=== PATIENT | female | born 1980 | race Caucasian/White ===

== ENCOUNTER 2016-07-14 06:34 | Emergency (ER) | payer OTHER, MEDICAID ==
[2016-07-14 06:41] VITALS: BP 103/69; RESP 18; TEMP 98.2
--- NOTE | 2016-07-14 07:20 | EDPHY ---
H & P Time Seen by Provider: 07/14/16 06:58 HPI/ROS: CHIEF COMPLAINT: fall HISTORY OF PRESENT ILLNESS: Patient is a 35-year-old female who presents to the emergency department after falling on black ice. Patient states she fell onto her left hip. She now has severe left hip pain. It is worse with movement. She has difficulty walking. She also complains of right rib pain. She denies shortness of breath. Rib pain hurts worse with movement. No neck or back pain. No headache. She did not lose consciousness. No nausea or vomiting. No numbness or tingling REVIEW OF SYSTEMS: My complete review of systems is negative except as mentioned in the HPI. Past Medical/Surgical History: Includes asthma and hypertension Social history: Homeless Smoking Status: Heavy smoker Physical Exam: Vitals noted GENERAL: Mild acute distress, alert. HEAD: No evidence of trauma. EYES: PERRLA, EOMI, normal to inspection. ENT: Airway intact, no dental or oral injury, no malocclusion, normal external examination. NECK: The trachea is midline. There is no crepitus. The C-spine is nontender. NEXUS criteria is negative (no midline tenderness, no distracting injury, no altered mental status, no recent alcohol use, no focal neurologic deficit). RESPIRATORY: Clear to auscultation bilaterally, no rales, rhonchi or wheezing. There is no crepitus or palpable rib fractures. CVS: Regular rate and rhythm, no rubs, murmurs, or gallops. Chest wall: Mild right lateral tenderness palpation. No crepitus or deformity. ABDOMEN: Soft, nontender, nondistended, normal bowel sounds, no bruising or abrasions. Benign Pelvis: Stable. Mild left hip tenderness to palpation. No deformity. Pain with movement. BACK: Normal to inspection, no spinal tenderness, no spinal step off, no notable bruising or abrasions. SKIN: Normal color, warm, dry. No pallor or diaphoresis. EXTREMITIES: Right upper extremity: Atraumatic. No visible signs of trauma. No tenderness palpation. Neurovascular intact distally. Left upper extremity: Atraumatic. No visible signs of trauma. No tenderness palpation. Neurovascular intact distally. Right lower extremity: Atraumatic. No visible signs of trauma. No tenderness palpation. Neurovascular intact distally. Left lower extremity: No visible trauma. Mild left hip tenderness to palpation. No deformity. Discomfort with movement of the left hip. Neurovascularly intact distally in all extremities. Pelvis stable NEURO/PSYCH: Alert and oriented, GCS 15, normal mood and affect, normal motor sensory exam. Constitutional: Initial Vital Signs Temperature (C) 36.8 C 07/14/16 06:38 Heart Rate 89 07/14/16 06:38 Respiratory Rate 18 07/14/16 06:38 Blood Pressure 103/69 07/14/16 06:38 O2 Sat (%) 96 07/14/16 06:38 O2 Delivery Mode Room Air Allergies/Adverse Reactions: Penicillins Allergy (Unknown, Verified 07/14/16 06:41) Fish Containing Products [fish] Allergy (Verified 07/14/16 06:42) Home Medications: Medication Instructions Recorded Ativan 01/05/16 Depakote 01/05/16 Zyprexa 01/05/16 traZODone 04/26/16 Medical Decision Making ED Course/Re-evaluation: In the emergency department I discussed possible etiologies with patient. She consented to x-ray imaging of her left hip and chest. She was given Percocet orally. Rechecked the patient while here. She was stable with no new complaints. Chest x-ray: Please refer the dictated report. There are findings of bronchitis. No acute fracture, pneumothorax or hemothorax. Left hip x-ray: I reviewed the left hip x-ray with Dr. newman. There appears to be old avulsion. No acute fracture or dislocation. I discussed the results with the patient. Patient was offered crutches. She states that she would prefer a walker. I spoke with case management to help arrange a walker for the patient. Patient was given a single crutches given a cab voucher to get to her prescription for a walker. She agreed with this plan. She was able to ambulate in the emergency department. Differential Diagnosis: My differential includes but is not limited to hip contusion, hip fracture, hip dislocation, neurovascular injury, rib contusion, rib fracture, pneumothorax, hemothorax - Data Points Medications Given: Discontinued Medications Oxycodone/Acetaminophen (Percocet 5/325) 2 tab PO EDNOW ONE Stop: 07/14/16 07:27 Last Admin: 07/14/16 07:48 Dose: 2 tab Departure - Departure Disposition: Home, Routine, Self-Care Clinical Impression: Schizophrenia Contusion of left hip Qualifiers: Encounter type: initial encounter Qualifier Code: (S70.02XA) Contusion of left hip, initial encounter Contusion of rib on right side Qualifiers: Encounter type: initial encounter Qualifier Code: (S20.211A) Contusion of right front wall of thorax, initial encounter Condition: Good Instructions: Hip Contusion (ED), Rib Contusion (ED) Referrals: [facility] [Outside] - As per Instructions
[2016-07-14] MEDS ORDERED: OXYCODONE/APAP 5/325 TAB PO ONE (07:26)
--- NOTE | 2016-07-14 08:01 | DX ---
AP and Lateral Chest History: Fall on ice, left hip pain, cough. Comparison: Two-view chest April 26, 2016. Findings: There is mild peribronchial thickening without focal consolidation. There is no pneumothora x or pleural effusion. The heart and pulmonary vasculature are normal. The bones are stable. Impression: Mild peribronchial thickening suggesting airways disease/bronchitis.
[2016-07-14 09:58] VITALS: PULSE 78; O2SAT 93
--- NOTE | 2016-07-14 10:16 | DX ---
Left Hip Two Views INDICATION: Trauma. FINDINGS: No radiographic evidence for fracture or dislocation. Two linear radiopaque materials are o wil the lateral proximal thigh, presumed to be extrinsic. No significant degenerative change. SI join ts are symmetric. IMPRESSION: Nothing acute radiographically on the left hip. Fragment lateral to the greater trochante r is thought to be old avulsion injury or tendinous calcification.
== END 2016-07-14 09:58 | disposition home or self-care (01) ==
DX: S70.02XA Contusion of left hip, initial encounter (principal); S20.211A Contusion of right front wall of thorax, initial encounter; F20.9 Schizophrenia, unspecified; J45.909 Unspecified asthma, uncomplicated; I10 Essential (primary) hypertension; F17.200 Nicotine dependence, unspecified, uncomplicated; W00.0XXA Fall on same level due to ice and snow, initial encounter

== ENCOUNTER 2016-07-23 13:51 | Emergency (ER) | payer OTHER, MEDICAID ==
[2016-07-23 14:17] VITALS: BP 123/69; PULSE 85; RESP 16; TEMP 98.4; O2SAT 95
--- NOTE | 2016-07-23 14:50 | EDPHY ---
H & P Stated Complaint: PD found pt trespassing. pt c/o fell yest. PD called EMS. BIBA for pain. Source: Patient, Family Exam Limitations: No limitations - Personal History LMP (Females 10-55): Unknown Current Tetanus/Diphtheria Vaccine: Unsure Current Tetanus Diphtheria and Acellular Pertussis (TDAP): Unsure - Medical/Surgical History Hx Asthma: Yes Hx Chronic Respiratory Disease: No Hx Diabetes: No Hx Cardiac Disease: No Hx Renal Disease: No Hx Cirrhosis: No Hx Alcoholism: No Hx HIV/AIDS: No Hx Splenectomy or Spleen Trauma: No Other PMH: c section x4; wisdom teeth extraction; depression; SI, crack cocaine & meth abuse, psych, asthma, DM, schizophrenia - Social History Smoking Status: Heavy smoker HPI/ROS: CHIEF COMPLAINT: Headache, back pain, fall HISTORY OF PRESENT ILLNESS: patient reports falling last night of her wheelchair. She says she was running across the street when she slipped, falling forward. She struck her head and back. No loss of consciousness. No vomiting. Since then she has had pain in the back of the head, the sides of her neck, on her low back into the pelvis. She has no numbness or tingling anywhere. She has no incontinence. She always has some paresthesia of the legs which is at baseline. She has no weakness of the legs. She says she is in so much pain she cannot walk. No vomiting today. No chest or thoracic back injury. No abdominal pain. No dysuria. Patient says she is in severe pain and was unable to walk. The police, who were attempting to escort her off of property today said that she was actually walking vigorously Away from them. They were attempting to escorted off the property, when she noted that she was in pain from a fall last night and asked to be taken to the emergency department. No other associated complaints or modifying factors. REVIEW OF SYSTEMS: Ten systems reviewed and are negative unless otherwise noted in the HPI EXAMINATION General Appearance: Alert, no distress , unkempt Head: normocephalic, atraumatic. No Hernandez sign. No raccoon eyes. No hematoma , deformity or outward signs of trauma Eyes: Pupils equal and round, no conjunctival pallor or injection. EOMs intact. ENT, Mouth: Mucous membranes moist . Poor dentition. No lesions Neck: Normal inspection, supple. Tenderness to palpation about the lateral aspects of the cervical spine and trapezius muscles bilaterally. No step-offs or deformity. Respiratory: Scattered rhonchi. No wheezing, crackles or consolidation Cardiovascular: tachycardic at 102 beats per minute. Normal rhythm. No murmur. Pulses intact distally with symmetric DP, PT and radial pulses at 2+. Gastrointestinal: Obese. Soft and nontender. Back: Tenderness to palpation of the lumbar spine. No crepitus, step-off or deformity. Tenderness to palpation of the cervical spine at the lateral aspect. No midline tenderness of the cervical spine. No tenderness of the thoracic spine. There is soft tissue tenderness in the entire back. No bruising, hematomas or outward signs of trauma of the back. Neurological: A&O, nonfocal, normal gait Skin: Warm and dry. Unkempt. Grossly intact. Extremities: Nontender, no pedal edema . Range of motion intact in all 4 limbs. Psychiatric: Mood and affect normal DIFFERENTIAL DIAGNOSES: Including but not limited to Contusion, fracture, hematoma, sprain, strain, closed head injury MDM: mechanical fall with no outward signs of trauma at any site of her pain. She has no nausea vomiting, without any outward sign of trauma I have not ordered a CT scan of the head. We will obtain a CT scan of the cervical spine, plain film lumbar spine, plain film of the pelvis. 4:[address] scan of the cervical spine, chest x-ray, lumbar x-ray, pelvic x-ray are all within normal limits. no evidence of acute cord compression or cauda equina by history, examination or x-ray. She has been ambulatory in the hallway several times asking for water and food. Discharged home in stable condition with instructions to follow up with [facility] for further care. Patient is comfortable with this plan SUPERVISION: Patient was evaluated in conjunction with the supervising physician. Please see their note for details. (Laurent Hoffman) Constitutional: Initial Vital Signs Temperature (C) 98.4 F 07/23/16 14:13 Heart Rate 85 07/23/16 14:13 Respiratory Rate 16 07/23/16 14:13 Blood Pressure 123/69 H 07/23/16 14:13 O2 Sat (%) 95 07/23/16 14:13 O2 Delivery Mode Room Air Allergies/Adverse Reactions: Penicillins Allergy (Unknown, Verified 07/23/16 14:13) Fish Containing Products [fish] Allergy (Verified 07/23/16 14:13) Home Medications: Medication Instructions Recorded Ativan 01/05/16 Depakote 01/05/16 Zyprexa 01/05/16 traZODone 04/26/16 Ibuprofen 600 mg PO Q6-8PRN PRN #20 tablet 07/23/16 Medical Decision Making ED Course/Re-evaluation: CT cspine negative per Cezar at 1546. (Chase Garcia) Departure - Departure Disposition: Home, Routine, Self-Care Clinical Impression: Closed head injury Qualifiers: Encounter type: initial encounter Qualifier Code: (S09.90XA) Unspecified injury of head, initial encounter Fall Qualifiers: Encounter type: initial encounter Qualifier Code: (W19.XXXA) Unspecified fall, initial encounter Acute low back pain Qualifiers: Back pain laterality: midline Sciatica presence: without sciatica Qualifier Code: (M54.5) Low back pain Condition: Good Instructions: Fall Prevention for Older Adults (ED), Head Injury (ED), Acute Low Back Pain (ED) Referrals: Betsy Durbin MD [Medical Doctor] - As per Instructions NONE *PRIMARY CARE P,. [Primary Care Provider] - As per Instructions [facility] [Outside] - As per Instructions Prescriptions: Ibuprofen 600 mg PO Q6-8PRN PRN #20 tablet PRN Reason: Pain, Mild
--- NOTE | 2016-07-23 15:47 | CT ---
CT Cervical Spine 15:27 p.m. Indication: Trauma. Neck pain. Comparison: None Technique: 1.25 mm thick axial collimated slices were obtained from the occiput through superior endp late of T2. The data was reconstructed in the sagittal and coronal plane. Both soft tissue and bone w indows were reviewed. Dose reduction techniques were utilized. Findings: The occiput through T2 is anatomically aligned. No acute fracture or soft tissue swelling. No motion artifact. The lung apices are clear. Mild mucosal thickening is present in the sphenoid air cells. Impression: 1. No acute fracture or soft tissue swelling. 2. If the patient has persistent pain or neurologic deficits, consider cervical spine MRI. Comment: Case was discussed with Dr. Chase Garcia at 15:45 July 23, 2016.
--- NOTE | 2016-07-23 15:56 | DX ---
PA and Lateral Chest 14:59 PM Indication: Trauma. Fell from wheelchair. Comparison: 2 view chest dated July 14, 2016 Findings: The lungs are well aerated and clear. Mild diffuse peribronchial thickening is unchanged. N o pneumothorax or discernible fracture. Minimal multilevel degenerative disk disease unchanged. Impression: Negative. No acute change.
--- NOTE | 2016-07-23 16:24 | DX ---
Lumbar Spine, Two Views 15:04 PM Hours Indication: Pain. Trauma. Comparison: 2 view lumbar spine April 30, 2016 Technique: Upright AP and lateral views. Findings: Five nonrib-bearing lumbar vertebral bodies are anatomically aligned. No acute compression fracture or pars defect. Minimal disk height loss at T12-L1, L1-L2, L2-L3, and L5-S1 is unchanged. Impression: No acute fracture or pars defect.
--- NOTE | 2016-07-23 16:37 | DX ---
Pelvis single view Indication: Trauma. Fell from wheelchair. Comparison: AP pelvis dated April 30, 2016 Findings: Bones are anatomically aligned. No acute fracture. Minimal dystrophic calcification along t he left greater trochanter is unchanged. Impression: Negative. No acute fracture.
== END 2016-07-23 17:05 | disposition home or self-care (01) ==
LOC: EDUNIT#
DX: S09.90XA Unspecified injury of head, initial encounter (principal); S39.92XA Unspecified injury of lower back, initial encounter; J45.909 Unspecified asthma, uncomplicated; F17.200 Nicotine dependence, unspecified, uncomplicated; V00.818A Other accident with wheelchair (powered), initial encounter; Y92.410 Unspecified street and highway as the place of occurrence of the external cause; Y93.89 Activity, other specified

== ENCOUNTER 2016-07-25 23:13 | Emergency (ER) | payer OTHER, MEDICAID ==
--- NOTE | 2016-07-25 23:25 | EDPHY ---
HPI/HX/ROS/PE/MDM Narrative: Chief complaint: Shortness of breath and dehydration HPI: 35-year-old homeless woman presenting complaining of shortness of breath, dehydration and being hungry. Patient states that she has been coughing up yellow phlegm and feeling shortness of breath. She called 911 but felt that her mouth was so dry she could hardly speak. She has not been drinking any fluids because she states she does not have a container to drink out of. Per EMS she has been picking at spent cigarettes off the sidewalk and smoking them. States she is also not been eating. Denies any fevers or chills. His cough productive of yellow sputum. Has not been taking her medications because she does not have anything to eat. Per EMS she was 97% on room air. They did not appreciate any wheezes. They did not at any treatments. ROS: 10 point Review of Systems is negative except as noted in the HPI. Physical exam: Gen: Awake, Alert, No Distress, oxygen saturation 97% on room air HEENT: Nose: no rhinorrhea Eyes: PERRLA, EOMI Mouth: Dry oral mucosa Neck: Supple, no JVD Chest: nontender, lungs clear to auscultation, she has good air movement, there are no audible wheezes, there are no rales or rhonchi. Heart: S1, S2 normal, no murmur Abd: Soft, non-tender, no guarding Back: no CVA tenderness, no midline tenderness Ext: no edema, non-tender Skin: no rash Neuro: CN II-XII intact, Sensation grossly intact, Strength 5/5 in bilateral upper and lower extremities ED Course: 35-year-old homeless woman presenting complaining of shortness of breath, yellow sputum, dehydration hungry. She is normal oxygenation. She has excellent air movement with no wheeze rales or rhonchi. She does have dry mucous membranes. Will give her oral hydration and reassess. Patient is improved after oral fluids and food. She has no respiratory distress. Lungs are clear. She is afebrile. Oxygen saturation is excellent. Will discharge with outpatient follow-up as needed. General Time Seen by Provider: 07/25/16 23:18 Initial Vital Signs: Initial Vital Signs Temperature (C) 36.7 C 07/25/16 23:23 Heart Rate 86 01/30/17 23:23 Respiratory Rate 20 07/25/16 23:23 Blood Pressure 107/74 07/25/16 23:23 O2 Sat (%) 96 07/25/16 23:23 O2 Delivery Mode Room Air Allergies/Adverse Reactions: Penicillins Allergy (Unknown, Verified 07/23/16 14:13) Fish Containing Products [fish] Allergy (Verified 07/23/16 14:13) Home Medications: Medication Instructions Recorded Ativan 01/05/16 Depakote 01/05/16 Zyprexa 01/05/16 traZODone 04/26/16 Ibuprofen 600 mg PO Q6-8PRN PRN #20 tablet 07/23/16 Departure - Departure Disposition: Home, Routine, Self-Care Clinical Impression: Viral upper respiratory infection, Dehydration Condition: Good Instructions: Viral Syndrome (ED) Additional Instructions: Make sure to drink plenty of fluids. Follow up with the [facility] in 2-3 days if symptoms are not improving. Return to the ED for increasing fevers, chills, shortness of breath, pain, or any other concerns. Referrals: NONE *PRIMARY CARE P,. [Primary Care Provider] - As per Instructions [facility] [Outside] - As per Instructions
[2016-07-25 23:26] VITALS: TEMP 98.1
[2016-07-26 01:27] VITALS: BP 110/71; PULSE 81; RESP 18; O2SAT 97
== END 2016-07-26 01:31 | disposition home or self-care (01) ==
LOC: EDUNIT#
DX: E86.0 Dehydration (principal); J06.9 Acute upper respiratory infection, unspecified

== ENCOUNTER 2016-07-31 18:24 | Emergency (ER) | payer OTHER, MEDICAID ==
[2016-07-31 18:34] VITALS: BP 100/76; PULSE 100; RESP 24; TEMP 99.7; O2SAT 92
--- NOTE | 2016-07-31 18:42 | EDPHY ---
HPI/HX/ROS/PE/MDM Narrative: CHIEF COMPLAINT: Multiple complaints HPI: The patient is a 35 y/o female, with 16 visits in the last year, [facility] complaining aggressively of "pain everywhere" and inability to walk on the ice. When attempting to clarify what her complaint is she says, "owwie;" "I can't make it down the street;" "and my ear and my tongue and my hip and my ribs." When I ask what she would like in the ED tonight , she says, "I came in an ambulance bro!" and "people who accuse me of drug use need to pray about it." I offered ibuprofen for pain, which she refused. After yelling at staff more, she stood, dressed herself, and walked out of her room yelling for a wheelchair to leave. REVIEW OF SYSTEMS: Aside from elements discussed in the HPI, a comprehensive 10-point review of systems was reviewed and is negative. PMH: Cellulitis, chronic pain SOCIAL HISTORY: Homeless, meth use Prior medical records reviewed including ED visit 07/25/16 for similar. PHYSICAL EXAM: General:Patient is alert, obese, yelling aggressively at staff. Obese. ENT:Eyes are normal to inspection. ENT inspection normal. Neck: Normal inspection. Full range of motion. Respiratory:No respiratory distress. Breath sounds normal bilaterally. Cardiovascular: Regular rate and rhythm. Strong peripheral pulses. Normal cap refill. Abdomen:The abdomen is nontender to palpation. There are no peritoneal signs. There are normal bowel sounds. Back: Normal to inspection. No tenderness to palpation. Skin: Normal color. Chronic excoriation underneath bilateral breasts. Warm and dry. Extremities: Normal appearance. Full range of motion. Neuro: Normal motor function. Normal sensory function. MDM: This patient presents with this extremely large and unusual number of complaints , none of which are consistent with an emergency medical condition. Her primary concern appears to be admission the hospital. I see no evidence of acute coronary syndrome, pneumonia, sepsis or psychiatric emergency. Clearly the patient has some psychiatric issues, but does not appear to warrant an M1 hold. I do not think further workup is currently indicated. General Time Seen by Provider: 07/31/16 18:32 Initial Vital Signs: Initial Vital Signs Temperature (C) 37.6 C 07/31/16 18:32 Heart Rate 100 07/31/16 18:32 Respiratory Rate 24 H 07/31/16 18:32 Blood Pressure 100/76 07/31/16 18:32 O2 Sat (%) 92 07/31/16 18:32 O2 Delivery Mode Room Air Allergies/Adverse Reactions: Penicillins Allergy (Unknown, Verified 07/23/16 14:13) Fish Containing Products [fish] Allergy (Verified 07/23/16 14:13) Home Medications: Medication Instructions Recorded Ativan 01/05/16 Depakote 01/05/16 Zyprexa 01/05/16 traZODone 04/26/16 Ibuprofen 600 mg PO Q6-8PRN PRN #20 tablet 07/23/16 Departure - Departure Disposition: Home, Routine, Self-Care Clinical Impression: Whole body pain Condition: Good Instructions: Chronic Pain (ED) Additional Instructions: Follow up at the [facility] this week for symptoms unimproved over the next few days. Referrals: Patient,NotPresent [Primary Care Provider] - As per Instructions [facility] [Outside] - As per Instructions Report Scribed for: Herber Hope Report Scribed by: Miriam Frost Date of Report: 07/31/16 Time of Report: 18:44 Physician Review and Approval Statement: Portions of this note were transcribed by an ED scribe. I personally performed the history, physical exam, and medical decision making; and confirm the accuracy of the information in the transcribed note.
== END 2016-07-31 18:53 | disposition home or self-care (01) ==
LOC: EDBD → EDUNIT#
DX: R52 Pain, unspecified (principal)

== ENCOUNTER 2016-08-31 06:27 | Emergency (ER) | payer OTHER, MEDICAID ==
[2016-08-31 06:38] VITALS: BP 80/64; PULSE 82; RESP 20; TEMP 98.1; O2SAT 98
[2016-08-31] MEDS ORDERED: IBUPROFEN 600 MG TAB PO ONE ×2 (07:31→07:41)
--- NOTE | 2016-08-31 07:32 | EDPHY ---
H & P Time Seen by Provider: 08/31/16 07:11 HPI/ROS: CHIEF COMPLAINT: right leg pain HISTORY OF PRESENT ILLNESS: 35-year-old female with schizophrenia presents for right leg pain. She states that she has broken body parts and hurts all over. Her right leg is hurting the most. No recent injury. She requests a shot to alleviate the pain. However, mainly she states that she is cold and asks me if I can keep her warm. ROS: No numbness, weakness, bleeding, syncopal episode, other injury. Past Medical/Surgical History: Schizophrenia Social History: Homeless Smoking Status: Heavy smoker Physical Exam: General Appearance: Sleeping as I enter the room, easily aroused, disheveled Eyes: Pupils equal and round ENT, Mouth: Mucous membranes moist Neck: Normal inspection Respiratory: Lungs are clear to auscultation Cardiovascular: Regular rate and rhythm Neurological: alert, nonfocal exam Skin: Warm and dry Extremities: right lower extremity-normal inspection, no tenderness to palpation, range of motion without apparent pain Psychiatric: odd affect Constitutional: Initial Vital Signs Temperature (C) 36.7 C 08/31/16 06:37 Heart Rate 82 08/31/16 06:37 Respiratory Rate 20 08/31/16 06:37 Blood Pressure 80/64 L 08/31/16 06:37 O2 Sat (%) 98 08/31/16 06:37 O2 Delivery Mode Room Air Allergies/Adverse Reactions: Penicillins Allergy (Unknown, Verified 07/23/16 14:13) Fish Containing Products [fish] Allergy (Verified 07/23/16 14:13) Home Medications: Medication Instructions Recorded Ativan 01/05/16 Ibuprofen 600 mg PO Q6-8PRN PRN #20 tablet 07/23/16 Risperdal 08/31/16 Medical Decision Making ED Course/Re-evaluation: This patient presents right leg pain, without signs of injury, and with a normal physical exam. Ibuprofen 600 mg orally given. Able to walk with a steady gait. - Data Points Medications Given: Discontinued Medications Ibuprofen (Motrin) 600 mg PO EDNOW ONE Stop: 08/31/16 07:32 Last Admin: 08/31/16 07:33 Dose: 600 mg Departure - Departure Disposition: Home, Routine, Self-Care Clinical Impression: Leg pain, right Schizophrenia Qualifiers: Schizophrenia type: paranoid schizophrenia Qualified Code(s): F20.0 - Paranoid schizophrenia Condition: Good Instructions: Leg Pain (ED) Additional Instructions: Ibuprofen 600 mg 3 times daily while the pain persists. Referrals: ANOOP BARNES [Primary Care Provider] - As per Instructions
== END 2016-08-31 08:01 | disposition home or self-care (01) ==
LOC: EDUNIT#
DX: M79.604 Pain in right leg (principal); F20.0 Paranoid schizophrenia; F17.200 Nicotine dependence, unspecified, uncomplicated

== ENCOUNTER 2016-12-03 00:51 | Emergency (ER) | payer OTHER, MEDICAID ==
[2016-12-03 00:59] VITALS: RESP 18
--- NOTE | 2016-12-03 03:24 | EDPHY ---
H & P Stated Complaint: asthma attack, cough x3 days Time Seen by Provider: 12/03/16 02:22 HPI/ROS: HPI The patient presents with cough and shortness of breath for the last 3 days. This is been intermittent, mild in severity. Her cough has been dry. She is brought in by ambulance and has received a DuoNeb treatment with improvement in her symptoms.. REVIEW OF SYSTEMS Constitutional: No fever, no chills. Eyes: No discharge. ENT: No sore throat. Cardiovascular: No chest pain, no palpitations. Respiratory: See HPI Gastrointestinal: No abdominal pain, no vomiting. Genitourinary: No hematuria. Musculoskeletal: No back pain. Skin: No rashes. Neurological: No headache. PMHx: Asthma, schizophrenia, drug abuse Soc Hx: Homeless PHYSICAL General Appearance: Alert, no distress Eyes: Pupils equal and round no pallor or injection ENT, Mouth: Mucous membranes moist Respiratory: There are no retractions, lungs are clear to auscultation Cardiovascular: Regular rate and rhythm Gastrointestinal: Abdomen is soft and non-tender, no masses, bowel sounds normal Neurological: A&O, moves all extremities Skin: Warm and dry, no rashes Musculoskeletal: Neck is supple non tender Extremities: symmetrical, full range of motion Psychiatric: Patient is oriented X 3, there is no agitation Source: Patient, EMS - Personal History Current Tetanus/Diphtheria Vaccine: Yes Current Tetanus Diphtheria and Acellular Pertussis (TDAP): Yes Tetanus Vaccine Date: 2015 - Medical/Surgical History Hx Asthma: Yes Hx Chronic Respiratory Disease: Yes Hx Diabetes: Yes Hx Cardiac Disease: No Hx Renal Disease: No Hx Cirrhosis: No Hx Alcoholism: No Hx HIV/AIDS: No Hx Splenectomy or Spleen Trauma: No Other PMH: c section x4; wisdom teeth extraction; depression; SI, crack cocaine & meth abuse, psych, asthma, DM, schizophrenia - Social History Smoking Status: Heavy smoker Constitutional: Initial Vital Signs Temperature (C) 36.9 C 12/03/16 00:57 Heart Rate 88 12/03/16 00:57 Respiratory Rate 18 12/03/16 00:57 Blood Pressure 121/71 H 12/03/16 00:57 O2 Sat (%) 93 12/03/16 00:57 O2 Delivery Mode Room Air O2 (L/minute) 2 Allergies/Adverse Reactions: Penicillins Allergy (Unknown, Verified 07/23/16 14:13) Fish Containing Products [fish] Allergy (Verified 07/23/16 14:13) Home Medications: Medication Instructions Recorded Ativan 01/05/16 Ibuprofen 600 mg PO Q6-8PRN PRN #20 tablet 07/23/16 Risperdal 08/31/16 Medical Decision Making Differential Diagnosis: This is a 36-year-old homeless female who presents brought in by ambulance for cough and shortness of breath for the last 3 days, symptoms now resolved since receiving a DuoNeb EN route. She is not hypoxic, she is breathing comfortably she is well-appearing. Her lungs sound completely clear to me. Differential diagnosis includes asthma exacerbation, viral URI, less likely pneumonia. The patient was monitored in the emergency room with no ongoing symptoms. She was discharged home. Departure - Departure Disposition: Home, Routine, Self-Care Clinical Impression: Shortness of breath Condition: Good Instructions: Dyspnea (ED) Referrals: [facility] [Outside] - As per Instructions
[2016-12-03 03:29] VITALS: BP 116/72; PULSE 80; TEMP 98.6; O2SAT 93
== END 2016-12-03 03:33 | disposition home or self-care (01) ==
LOC: EDUNIT#
DX: R06.02 Shortness of breath (principal); J45.909 Unspecified asthma, uncomplicated; F17.200 Nicotine dependence, unspecified, uncomplicated; E11.9 Type 2 diabetes mellitus without complications

== ENCOUNTER 2017-07-23 21:02 | Emergency (ER) | payer OTHER, MEDICAID ==
--- NOTE | 2017-07-23 21:05 | EDPHY ---
H & P Smoking Status: Heavy smoker Time Seen by Provider: 07/23/17 21:05 HPI/ROS: CHIEF COMPLAINT: Seeing snakes HISTORY OF PRESENT ILLNESS: Patient has schizoaffective disorder or schizophrenia (unclear from past records and hold) and also has history of substance abuse. She was using methamphetamine this weekend and today and is now hallucinating. Was placed on a mental health hold at the walk-in clinic and transported here. Patient denies homicidal or suicidal ideation. Says she is seeing snakes. REVIEW OF SYSTEMS: Eye: no change in vision ENT: no sore throat Cardiac: no chest pain or syncope Pulmonary: no cough or SOB Abdomen: no vomiting, diarrhea, abdominal pain Musculoskeletal: Chronic back pain unchanged Skin: no rash Neuro: no headache Constitutional: no fever : no urinary symptoms A comprehensive 10 point review of systems is otherwise negative aside from elements mentioned in the history of present illness. PAST MEDICAL HISTORY: Includes asthma, diabetes, schizoaffective disorder or schizophrenia Social history: Patient admits to methamphetamine use over the weekend and today, "100 dollars worth ", heavy smoker General Appearance: Alert and conversant, cooperative. Eyes: No scleral icterus. ENT, Mouth: Normal mucous membranes. Respiratory: Normal respiratory effort, breath sounds equal, lungs are clear to auscultation. Cardiovascular: Regular rate and rhythm. Gastrointestinal: Abdomen is soft and non tender. Neurological: Alert, face symmetric, normal motor and sensory in extremities. Skin: Warm and dry, no rashes. Musculoskeletal: Slight peripheral edema but no calf tenderness Psychiatric: Patient is mildly agitated and has pressured speech. Denies suicidal or homicidal ideation. Says she was "seeing rattlesnake "that is why she ended up the ambulance. Emergency Department course/MDM: Patient arrives on a mental health hold by the [facility] walk-in clinic. Amphetamine positive toxicology screen. Initial heart rate 120's likely due to her agitation, down to 90-100 after calmer. Signed out to Dr. Desir at 2200 with psychiatric evaluation pending. (Chase Garcia) Constitutional: Initial Vital Signs Temperature (C) 37.3 C 07/23/17 21:30 Heart Rate 122 H 07/23/17 21:30 Respiratory Rate 18 07/23/17 21:30 Blood Pressure 125/103 H 07/23/17 21:30 O2 Sat (%) 94 07/23/17 21:30 O2 Delivery Mode Room Air O2 (L/minute) 97 Allergies/Adverse Reactions: Penicillins Allergy (Unknown, Verified 07/29/17 02:16) Fish Containing Products [fish] Allergy (Verified 07/29/17 02:16) Home Medications: Medication Instructions Recorded Risperdal 08/31/16 Depakote 07/23/17 Medical Decision Making Differential Diagnosis: Differential for hallucinations considered including but not limited to metabolic, drug , alcohol, schizoaffective, (Chase Garcia) Other Provider: 2300 care assumed by me from Dr. Garcia pending mental health evaluation. Patient increasingly agitated overnight has required Ativan and Zyprexa on 2 occasions. Has never become aggressive. Awaiting mental health evaluation. 0700 patient signed out to Dr. Bell pending mental health evaluation. ( Maximo Desir) I assumed care of this patient from Dr. Desir at 7:00 a.m.. I was asked by the nursing staff to evaluate her and she is complaining of pain underneath her pannus. On examination, this is a disheveled, overweight female. She is reporting a rash with discomfort under her breasts as well as under her pannus and along her groin. She is also reporting discomfort in her feet. She tells me she does have a history of MRSA and has a history of diabetes. Patient has a erythematous rash underneath both breasts as well as underneath the pannus and on the anterior thighs. It appears consistent with a candidal infection. On her feet, she has what appears to be early frostbite along the sole of the left foot. I see no abscess. I see no obvious areas of cellulitis. Patient was given Ativan for ongoing agitation, Monistat cream to apply to the areas under her pannus and under her breasts, dose of fluconazole, and was started on doxycycline to prevent worsening skin infection. 11:30 a.m. Seen evaluated by [facility]. They recommend discharge. The patient is in agreement. She will go to [facility] this afternoon. She has a dedicated bed at the homeless nursing home. She was discharged with Monistat cream to use as directed as well as a prescription for doxycycline. (Linda Bell) - Data Points Laboratory Results: Laboratory Results 07/23/17 21:30 07/23/17 21:30 Medications Given: Discontinued Medications Divalproex Sodium (Depakote) 500 mg PO EDNOW ONE Stop: 07/24/17 10:09 Last Admin: 07/24/17 10:26 Dose: 500 mg Doxycycline Hyclate (Doxycycline Hyclate) 100 mg PO EDNOW ONE PRN Reason: Protocol Stop: 07/24/17 09:47 Last Admin: 07/24/17 09:52 Dose: 100 mg Fluconazole (Diflucan) 150 mg PO EDNOW ONE Stop: 07/24/17 09:47 Last Admin: 07/24/17 09:53 Dose: 150 mg Lorazepam (Ativan) 1 mg PO EDNOW ONE Stop: 07/23/17 22:56 Last Admin: 07/24/17 04:16 Dose: 1 mg Lorazepam (Ativan) 1 mg PO EDNOW ONE Stop: 07/24/17 05:35 Last Admin: 07/24/17 05:41 Dose: 1 mg Lorazepam (Ativan) 2 mg PO EDNOW ONE Stop: 07/24/17 09:47 Last Admin: 07/24/17 09:54 Dose: 2 mg Nicotine Polacrilex (Nicorette) 2 mg B EDNOW ONE Stop: 07/23/17 21:37 Last Admin: 07/23/17 21:37 Dose: 2 mg Nystatin (Mycostatin Oint 15gm) 1 raffy TP BID DIPESH Stop: 08/23/17 20:59 Last Admin: 07/24/17 10:26 Dose: 1 raffy Olanzapine (Zyprexa Zydis) 5 mg PO EDNOW ONE Stop: 07/23/17 21:30 Last Admin: 07/23/17 21:34 Dose: 5 mg Olanzapine (Zyprexa Zydis) 5 mg PO EDNOW ONE Stop: 07/23/17 22:56 Last Admin: 07/24/17 04:16 Dose: 5 mg Olanzapine (Olanzapine) 5 mg PO ONCE ONE Stop: 07/24/17 05:36 Last Admin: 07/24/17 05:41 Dose: 5 mg Departure - Departure Disposition: Home, Routine, Self-Care Clinical Impression: Methamphetamine abuse, Sherry rash of groin Schizoaffective disorder Qualifiers: Schizoaffective disorder type: unspecified Qualified Code(s): F25.9 - Schizoaffective disorder, unspecified Condition: Good Instructions: Methamphetamine Abuse (ED) Additional Instructions: Please do not used methamphetamine in the future. Please use the Monistat cream under your breasts and under your abdomen 2 times a day to help clear the infection. Please take antibiotics, doxycycline, as directed. 1 tablet 2 times a day for the next 7 days. Please follow up with [facility] as previously directed and scheduled. Please continue to take your regular medications. Referrals: [facility],. [Clinic] - As per Instructions
[2017-07-23] MEDS ORDERED: OLANZapine DISINTEGR 10 MG TAB ONE (21:29)
[2017-07-23] MEDS ORDERED: NICOTINE POLACRILEX 2 MG GUM B ONE ×2 (21:29→21:36)
[2017-07-23] MEDS ORDERED: OLANZapine DISINTEGR 5 MG TAB PO ONE ×2 (21:29→22:55)
[2017-07-23 21:35] LABS: PLATELET COUNT 196 10^3/uL (150-400)
[2017-07-23] MEDS ORDERED: LORazepam 1 MG TAB ONE (22:54)
[2017-07-23] MEDS ORDERED: OLANZapine DISINTEGR 5 MG TAB ONE (22:54)
[2017-07-23] MEDS ORDERED: LORazepam 1 MG TAB PO ONE (22:55)
[2017-07-24] MEDS ORDERED: OLANZapine 5 MG TAB ONE (04:09)
[2017-07-24] MEDS ORDERED: LORazepam 1 MG TAB ONE (04:09)
[2017-07-24] MEDS ORDERED: LORazepam 1 MG TAB PO ONE ×2 (05:34→09:46)
[2017-07-24] MEDS ORDERED: OLANZapine 5 MG TAB PO ONE (05:35)
[2017-07-24 08:45] VITALS: TEMP 97.9
[2017-07-24] MEDS ORDERED: DOXYCYCLINE HYCLATE 100 MG CAP/TAB PO ONE (09:46)
[2017-07-24] MEDS ORDERED: FLUCONAZOLE 150 MG TAB PO ONE (09:46)
[2017-07-24] MEDS ORDERED: DIVALPROEX NA 500 MG TAB PO ONE (10:08)
[2017-07-24 12:42] VITALS: BP 110/74; PULSE 98; RESP 16; O2SAT 95
--- NOTE | 2017-07-24 12:53 | ASMTCMCOM ---
CM Note CM Note Notes: Requested to assist in filling patient's antibiotic prescription. Rx sent to [facility] to have it covered through pt's Medicaid. Prescription delivered to patient. CM available for further assistance if needed. Date Signed: 07/24/2017 12:51 PM Electronically Signed By:Jesica Guadalupe RN
--- NOTE | 2017-07-24 12:56 | ASDISCHSUM ---
Discharge Information Plan Status:Homeless/Snf Medically Cleared to Leave: Discharge Date:07/24/2017 12:42 PM CM D/C Disposition:Streets (Homeless) ADT D/C Disposition:Home, Routine, Self-Care Projected Discharge Date:07/24/2017 12:42 PM Transportation at D/C:Taxicab Discharge Delay Reason: Follow-Up Date:07/24/2017 12:42 PM Discharge Slot: Final Diagnosis: Placement Information Patient Contact Information Contact Name:CHARLENE Relationship: Address: Work Phone: City: [facility] Phone: State/Zip Code: Email: Financial Information Financial Class: Primary Plan Desc:MEDICARE OUTPATIENT Primary Plan Number:[id number] Secondary Plan Desc:MEDICAID HEALTH FIRST [place] Secondary Plan Number:[id number] Assessment Information [facility] CM Progress Note CM Note CM Note Notes: Requested to assist in filling patient's antibiotic prescription. Rx sent to [facility] [place] to have it covered through 's Medicaid. Prescription delivered to patient. CM available for further assistance if needed. Date Signed: 07/24/2017 12:51 PM Electronically Signed By:Jesica Guadalupe RN LACE ZOHREH Acuity / Level of Answers: No Care: Did the patient have an inpatient admission? # of Emergency department Answers: 1-2 visits in the last 6 months Social determinants Answers: Homelessness (street, [facility]) Mental health diagnosis (anxiety, depression, pers onality disorders, etc.) Lack of community resources and/or lack of social support (no pcp, lives alone, transportation, arianna d) Score: 11 Date Signed: 07/24/2017 12:53 PM Electronically Signed By:Jesica Guadalupe RN Intervention Information Intervention Type:Medication Date of Service:07/24/2017 12:54 PM Patient Type:Emergency Room Staff Member:KAYLI Guadalupe, Jesica Hours:0.5 Discipline:Apple Picker Severity: Comment:faxed Rx to [facility] [place]; filled thro [facility].
[2017-07-24] MEDS ORDERED: NYSTATIN 15 GM OINTMENT TP SCH (21:00)
== END 2017-07-24 12:42 | disposition home or self-care (01) ==
LOC: EDUNIT#
DX: F25.8 Other schizoaffective disorders (principal); F15.10 Other stimulant abuse, uncomplicated; J45.909 Unspecified asthma, uncomplicated; E11.9 Type 2 diabetes mellitus without complications; F17.200 Nicotine dependence, unspecified, uncomplicated
CPT/HCPCS: 80305; G0480

== ENCOUNTER 2017-07-29 02:15 | Emergency (ER) | payer OTHER, MEDICAID ==
[2017-07-29 02:20] VITALS: TEMP 98.2
--- NOTE | 2017-07-29 02:28 | EDPHY ---
H & P Stated Complaint: Used Meth, seeing snakes HPI/ROS: HPI CHIEF COMPLAINT: I have been smoking meth and now I am paranoid and anxious HISTORY OF PRESENT ILLNESS: Patient is a 36-year-old female, she has a history of paranoid schizophrenia, hepatitis-C, obesity presents emergency room by walking in for increased paranoia after doing methamphetamine. Patient states that she did methamphetamine for the past 3 days and now she feels anxious and more paranoid. She denies wanting to hurt herself or anybody else. She states that she would like to rest here. She would also like something for anxiety. Past Medical History: History polysubstance abuse, hep C, methamphetamine, obesity, borderline diabetes, MRSA Past Surgical History: No recent surgery Social History: Homeless, polysubstance abuse, recent meth use for 3 days, smokes tobacco, no alcohol. Family History: Noncontributory ROS REVIEW OF SYSTEMS: A comprehensive 10 point review of systems is otherwise negative aside from elements mentioned in the history of present illness. Exam Constitutional appears well nontoxic no acute distress, triage nursing summary reviewed, vital signs reviewed, awake/alert. Eyes normal conjunctivae and sclera, EOMI, PERRLA. HENT normal inspection, atraumatic, moist mucus membranes, no epistaxis, neck supple/ no meningismus, no raccoon eyes. Respiratory clear to auscultation bilaterally, normal breath sounds, no respiratory distress, no wheezing. Cardiovascular rate normal, regular rhythm, no murmur, no edema, distal pulses normal. Gastrointestinal soft, non-tender, no rebound, no guarding, normal bowel sounds, no distension, no pulsatile mass. Genitourinary no CVA tenderness. Musculoskeletal no midline vertebral tenderness, full range of motion, no calf swelling, no tenderness of extremities, no meningismus, good pulses, neurovascularly intact. Skin pink, warm, & dry, no rash, skin atraumatic. Neurologic awake, alert and oriented x 3, AAOx3, moves all 4 extremities equally, motor intact, sensory intact, CN II-XII intact, normal cerebellar, normal vision, normal speech. Psychiatric somewhat anxious, normal mood/affect. Heme/Lymph/Immune no lymphadenopathy. Differential Diagnosis: Includes but is not limited to in a particular order methamphetamine induced psychosis, methamphetamine induced paranoia, underlying mental illness Medical Decision Making: Plan for this patient 5 mg p.o. Zyprexa. Will allow her to rest and then re-evaluate her. Re-evaluation: 0525; patient feeling better after p.o. 5 mg Zyprexa. I did re-evaluate her she does not want hurt herself or anybody else she is feeling better in terms of her anxiety. Not is paranoid. Highly recommend she refrain from doing methamphetamine. Given that she is paranoid schizophrenia and smoking methamphetamine this will cause her paranoid to get worse. I explained her methamphetamine is very danger struck. She is agreeable that she will try to stop smoking or doing methamphetamine. Source: Patient - Personal History LMP (Females 10-55): Irregular Current Tetanus/Diphtheria Vaccine: Yes Current Tetanus Diphtheria and Acellular Pertussis (TDAP): Yes Tetanus Vaccine Date: 2015 - Medical/Surgical History Hx Asthma: Yes Hx Chronic Respiratory Disease: Yes Hx Diabetes: Yes Hx Cardiac Disease: No Hx Renal Disease: No Hx Cirrhosis: No Hx Alcoholism: No Hx HIV/AIDS: No Hx Splenectomy or Spleen Trauma: No Other PMH: c section x4; wisdom teeth extraction; depression; SI, crack cocaine & meth abuse, psych, asthma, DM, schizophrenia - Social History Smoking Status: Heavy smoker Constitutional: Initial Vital Signs Temperature (C) 36.8 C 07/29/17 02:18 Heart Rate 106 H 07/29/17 02:18 Respiratory Rate 16 07/29/17 02:18 Blood Pressure 121/86 H 07/29/17 02:18 O2 Sat (%) 95 07/29/17 02:18 O2 Delivery Mode Room Air Allergies/Adverse Reactions: Penicillins Allergy (Unknown, Verified 07/29/17 02:16) Fish Containing Products [fish] Allergy (Verified 07/29/17 02:16) Home Medications: Medication Instructions Recorded Risperdal 08/31/16 Depakote 07/23/17 Medical Decision Making - Data Points Medications Given: Discontinued Medications Olanzapine (Olanzapine) 5 mg PO ONCE ONE Stop: 07/29/17 02:37 Last Admin: 07/29/17 02:47 Dose: 5 mg Departure - Departure Disposition: Home, Routine, Self-Care Clinical Impression: Methamphetamine abuse Condition: Good Instructions: Methamphetamine Abuse (ED) Referrals: Shyam Silva MD [Primary Care Provider] - As per Instructions
[2017-07-29] MEDS ORDERED: OLANZapine 5 MG TAB PO ONE (02:36)
[2017-07-29 05:33] VITALS: BP 128/81; PULSE 102; RESP 18; O2SAT 94
== END 2017-07-29 05:35 | disposition home or self-care (01) ==
DX: F15.10 Other stimulant abuse, uncomplicated (principal); J45.909 Unspecified asthma, uncomplicated; E11.9 Type 2 diabetes mellitus without complications; F17.200 Nicotine dependence, unspecified, uncomplicated

== ENCOUNTER 2017-08-04 16:50 | Emergency (ER) | payer OTHER, MEDICAID ==
[2017-08-04 17:54] LABS: PLATELET COUNT 205 10^3/uL (150-400)
--- NOTE | 2017-08-04 18:48 | EDPHY ---
H & P Smoking Status: Heavy smoker Time Seen by Provider: 08/04/17 17:51 HPI/ROS: CHIEF COMPLAINT: M1 hold HISTORY OF PRESENT ILLNESS: 36-year-old female presents to the emergency department on an M1 hold feeling suicidal. The patient states "I do not have a plan yet ". She has a history of schizophrenia is been taking her medications as prescribed. She is homeless. No abdominal pain, nausea vomiting or diarrhea. She denies homicidal ideation. Currently has no physical complaints. REVIEW OF SYSTEMS: Constitutional: No fever, no chills. Eyes: No double or blurry vision. ENT: No sore throat. Respiratory: No cough, no shortness of breath. Cardiac: No chest pain. Gastrointestinal: No abdominal pain, vomiting or diarrhea. Genitourinary: No dysuria. Musculoskeletal: No neck or back pain. Skin: No rashes. Neurological: No headache. (Estephania Claudio) Past Medical/Surgical History: Schizophrenia, asthma, diabetes, substance abuse, C-sections (Estephania Claudio) Social History: Homeless (Estephania Claudio) Physical Exam: General Appearance: Alert, no distress. Eating. No apparent distress. Eyes: Pupils equal and round. Extraocular motions are all intact. ENT: Mouth: Mucous membranes moist. Respiratory: No wheezing, rhonchi, or rales, lungs are clear to auscultation. Cardiovascular: Regular rate and rhythm. Gastrointestinal: Abdomen is soft and nontender, no masses, no rebound or guarding, bowel sounds normal. Neurological: Alert and oriented x 3, cranial nerves II through XII grossly intact Skin: Warm and dry, no rashes. Musculoskeletal: Nontender to palpate along the cervical, thoracic or lumbar spine. Neck is supple. Extremities: Full range of motion and no peripheral edema. Psychiatric: Patient is oriented X 3, there is no agitation. (Estephania Claudio) Constitutional: Initial Vital Signs Temperature (C) 36.7 C 08/04/17 16:55 Heart Rate 82 08/04/17 16:55 Respiratory Rate 18 08/04/17 16:55 Blood Pressure 133/76 H 08/04/17 16:55 O2 Sat (%) 92 08/04/17 16:55 O2 Delivery Mode Room Air Allergies/Adverse Reactions: Penicillins Allergy (Unknown, Verified 07/29/17 02:16) Fish Containing Products [fish] Allergy (Verified 07/29/17 02:16) Home Medications: Medication Instructions Recorded Risperdal 08/31/16 Depakote 07/23/17 Medical Decision Making ED Course/Re-evaluation: 36-year-old female with a known history of schizophrenia presents feeling suicidal. She is on an M1 hold. She has been medically cleared and is awaiting mental health evaluation. Mental health hardwood flooring specialist came to evaluate the patient and the pain is refusing to talk. Patient also has a history of methamphetamine use and stated that she last used methamphetamines 3 days ago. Mental health hardwood flooring specialist states that she is unable to evaluate the patient now and will come back in the morning for mental health evaluation. (Estephania Claudio ) Differential Diagnosis: Depression including functional and major depression, situational depression, medication side effect, drugs and alcohol abuse. (Estephania Claudio) Other Provider: 0220 care assumed by me from MIGUEL Claudio pending evaluation in the morning. [address] Garcia pending mental health evaluation. No issues during my care this patient overnight. (Maximo Desir) Care assumed at 6:45 a.m. with plan for mental health evaluation. She is clear for psychiatric evaluation. States she is suicidal, toxicology screen negative for amphetamines. 1000: Patient had mental health evaluation is no longer suicidal. She got in a fight with her mother last night which was the reason for her being upset. Recommendation of the hardwood flooring specialist and consulting psychiatrist Dr. Herrera is to terminate the mental health hold and discharge the patient. (Chase Garcia) 36-year-old female presents to the emergency department on M1 hold. She has a known history of schizophrenia. She states that she has been compliant with her medications. She is suicidal with no plan. Mental health hardwood flooring specialist came to evaluate the patient, however the patient refused to talk with hardwood flooring specialist. She has a long history of methamphetamine abuse. She told hardwood flooring specialist that her last use of methamphetamines was 3 days ago. The plan is to evaluate the patient in the morning. She is on an M1 hold. ( Estephania Claudio) - Data Points Laboratory Results: Laboratory Results 08/04/17 17:15 08/04/17 17:15 Medications Given: Discontinued Medications Nicotine Polacrilex (Nicorette) 2 mg B PRN PRN PRN Reason: Nicotine Withdrawal Stop: 02/01/18 06:05 Last Admin: 08/05/17 09:45 Dose: 2 mg Departure - Departure Disposition: Home, Routine, Self-Care Clinical Impression: Schizophrenia Qualifiers: Schizophrenia type: unspecified Qualified Code(s): F20.9 - Schizophrenia, unspecified Condition: Good Instructions: Schizophrenia (ED) Referrals: [facility],. [Clinic] - As per Instructions
[2017-08-05 02:58] VITALS: RESP 18
[2017-08-05] MEDS: NICOTINE POLACRILEX 2 MG GUM B PRN ×2 (06:10→09:45)
[2017-08-05 10:09] VITALS: BP 130/59; PULSE 95; TEMP 98.2; O2SAT 95
== END 2017-08-05 10:15 | disposition home or self-care (01) ==
LOC: EEVIPCON 16:50
DX: F20.9 Schizophrenia, unspecified (principal); E11.9 Type 2 diabetes mellitus without complications; J45.909 Unspecified asthma, uncomplicated; F17.200 Nicotine dependence, unspecified, uncomplicated
CPT/HCPCS: 80305

== ENCOUNTER 2017-08-29 11:40 | Emergency (ER) | payer OTHER, MEDICAID ==
[2017-08-29 11:50] VITALS: BP 156/94; PULSE 96; RESP 20; TEMP 98.1; O2SAT 95
--- NOTE | 2017-08-29 12:25 | EDPHY ---
H & P Stated Complaint: R foot pain;back pain, coughing up yellow mucous;homeless Time Seen by Provider: 08/29/17 12:24 HPI/ROS: HPI: This is a 36-year-old female who presents with Chief Complaint: R foot pain;back pain, coughing up yellow mucous;homeless Location: Chest Quality: Productive Cough Duration: 5 days Signs and Symptoms: No fever, + chills, no shortness of breath, + wheezing, no chest pain, No bleeding, no radiation, no numbness, no weakness, no tingling, no incontinence, no decreased range of motion, no swelling, + top of right foot pain, no nasal congestion, no rhinorrhea Timing: Daily, worse at night, gradually worsening Severity: Moderate Context: Patient has a history of asthma/COPD, tobacco user, homelessness presents with several complaints; 1st one being a productive cough of green sputum accompanied by wheezing and fatigue. Patient reports that she is out of her albuterol inhaler. Not supplemental oxygen dependent. Did not receive influenza vaccine this year. Second complaint is that the patient's top of right foot is sore; pain is worsened with wearing shoes touching the area. Denies any injury/trauma/radiation/paresthesias/numbness. Patient reports that she is unable to afford ibuprofen. Denies any trauma/injury. After further questioning patient admits to wandering around the city for the last 3 nights as she did not want to go to the [facility]. Modifying Factors: None Comment: ROS: see HPI Constitutional: No fever, + chills, no weight loss Eyes: No blurred vision Respiratory: No shortness of breath, + cough Cardiovascular: No chest pain Gastrointestinal: No nausea, no vomiting no diarrhea Genitourinary: No dysuria Extremities: No myalgias Neurologic: No weakness, no numbness Skin: No rashes Hematologic: No bruising, no bleeding MEDICAL/SURGICAL/SOCIAL HISTORY: Medical/surgical history: c section x4; wisdom teeth extraction; depression; SI , crack cocaine & meth abuse, psych, asthma, DM, schizophrenia, chronic pain, non-compliance w/meds Social history: Homeless CONSTITUTIONAL: Obese untidy adult white female, awake and alert, no obvious distress HEENT: Atraumatic and normocephalic. NECK: supple, no midline tenderness, flexion 45 degrees, extension 45 degrees, right and left lateral flexion 45 degrees. No meningismus. Cardiovascular: Normal S1/S2, regular rate, regular rhythm, without murmur rub or gallop. PULMONARY/CHEST: Symmetrical and nontender. no crepitus. Clear to auscultation bilaterally diminished bibasilarly secondary to body habitus. Good air movement. No accessory muscle usage. ABDOMEN: Soft, nondistended, nontender, no ecchymosis. PELVIC: no pain with rocking; bilateral hips flexion 125 degrees, extension 30 degrees, with no pain internal rotation and no pain external rotation. BACK: No midline tenderness, no paraspinous spasm, deep tendon reflexes 2/2, no pain with straight leg raise EXTREMITIES: 2/2 pulses, strength 5/5, right Ankle: Plantar flexion to 50, dorsiflexion to 20. Foot inversion to 35 degree. No tenderness/swelling Anterior talofibular ligament. No tenderness/swelling Calcaneofibular ligament , no tenderness/swelling posterior talofibular ligament, no tenderness/swelling posterior inferior tibiofibular ligament. Achilles tendon intact. Moderate tenderness to palpation at the top of her right foot; no ecchymosis or deformity appreciated. DIP/PIP/MCP flexion/extension intact with good light touch sensation. no deformities, no clubbing, no cyanosis or edema. NEUROLOGICAL: no focal neuro deficits. GCS 15. Light touch sensation intact. SKIN: Warm and dry, no erythema. no rash. Good capillary refill. Source: Patient Exam Limitations: No limitations - Personal History LMP (Females 10-55): Irregular Current Tetanus Diphtheria and Acellular Pertussis (TDAP): Yes Tetanus Vaccine Date: 2015 - Medical/Surgical History Hx Asthma: Yes Hx Chronic Respiratory Disease: Yes Hx Diabetes: Yes Hx Cardiac Disease: No Hx Renal Disease: No Hx Cirrhosis: No Hx Alcoholism: No Hx HIV/AIDS: No Hx Splenectomy or Spleen Trauma: No Other PMH: c section x4; wisdom teeth extraction; depression; SI, crack cocaine & meth abuse, psych, asthma, DM, schizophrenia, chronic pain, non-compliance w/ meds - Social History Smoking Status: Heavy smoker Constitutional: Initial Vital Signs Temperature (C) 36.7 C 08/29/17 11:45 Heart Rate 96 08/29/17 11:45 Respiratory Rate 20 08/29/17 11:45 Blood Pressure 156/94 H 08/29/17 11:45 O2 Sat (%) 95 08/29/17 11:45 O2 Delivery Mode Room Air Allergies/Adverse Reactions: Penicillins Allergy (Unknown, Verified 08/29/17 11:44) Fish Containing Products [fish] Allergy (Verified 08/29/17 11:44) Home Medications: Medication Instructions Recorded Risperdal 08/31/16 Depakote 07/23/17 levOFLOXACIN [levAQUIN (*)] 750 mg PO DAILY #5 tab 08/29/17 predniSONE [predniSONE TAPER] 10 mg PO DAILY 6 Days ea 08/29/17 Medical Decision Making - Diagnostics Imaging Results: Imaging Impressions Chest X-Ray 08/29/17 12:54 Impression: Normal chest x-ray. Foot X-Ray 08/29/17 12:54 Impression: 1. Subtle possible stress fracture response proximal shaft right fourth metatarsal. 2. Hypertrophic osteophytes about the ankle joint. 3. Large plantar calcaneal spur. 4. Mild joint space narrowing first MTP joint. ED Course/Re-evaluation: Chest x-ray, right foot x-ray, oral medications and nebulizer therapy ordered Vital signs reviewed upon arrival and stable. Given DuoNeb, p.o. Prednisone, p.o. Ibuprofen, PO Tessalon Perles Right foot x-ray my read shows ?minimal Fourth metatarsal fracture. Positive heel bone spur. RICE therapy. Chest x-ray my read no opacity, effusion, pulmonary congestion. Chart review shows that patient has Medicaid; spoke with case management who reports that patient is noncompliant has exhausted all resources. Patient has lung disease; noncompliance; unhealthy; will treat aggressively with Levaquin, prednisone taper and given albuterol inhaler to take home This patient was seen under the supervision of my secondary supervising physician. I evaluated care for this patient independently. Differential Diagnosis: Differential diagnosis includes but is not limited to pneumonia, bronchitis, upper respiratory infection, influenza, sepsis, asthma exacerbation. - Data Points Medications Given: Discontinued Medications Albuterol (Proventil Inhaler) 2 puffs IH EDNOW ONE Stop: 08/29/17 13:33 Last Admin: 08/29/17 14:11 Dose: 2 puffs Albuterol/Ipratropium (Duoneb) 3 ml IH EDNOW ONE Stop: 08/29/17 12:55 Last Admin: 08/29/17 13:32 Dose: 3 ml Benzonatate (Tessalon Pearles) 200 mg PO EDNOW ONE Stop: 08/29/17 12:55 Last Admin: 08/29/17 13:32 Dose: 200 mg Ibuprofen (Motrin Oral Solution) 600 mg PO EDNOW ONE Stop: 08/29/17 12:55 Last Admin: 08/29/17 13:33 Dose: Not Given Ibuprofen (Motrin) 600 mg PO EDNOW ONE Stop: 08/29/17 12:55 Last Admin: 08/29/17 13:32 Dose: 600 mg Levofloxacin (Levaquin) 750 mg PO EDNOW ONE PRN Reason: Protocol Stop: 08/29/17 13:45 Last Admin: 08/29/17 14:12 Dose: 750 mg Prednisone (Prednisone) 60 mg PO EDNOW ONE Stop: 08/29/17 12:55 Last Admin: 08/29/17 13:32 Dose: 60 mg Departure - Departure Disposition: Home, Routine, Self-Care Clinical Impression: Lower respiratory infection Heel spur Qualifiers: Laterality: right Qualified Code(s): M77.31 - Calcaneal spur, right foot Asthma Qualifiers: Asthma severity: mild Asthma persistence: intermittent Asthma complication type : unspecified Qualified Code(s): J45.20 - Mild intermittent asthma, uncomplicated Metatarsal stress fracture of right foot Qualifiers: Encounter type: initial encounter Qualified Code(s): M84.374A - Stress fracture , right foot, initial encounter for fracture Condition: Good Instructions: Heel Spur (ED), Acute Bronchitis (ED), Foot Fracture in Adults ( ED) Additional Instructions: The x-rays obtained in the emergency department today demonstrate no evidence of pneumonia. Wear properly fitting shoes and rest your foot until pain is resolved. If foot pain presents greater than 2 weeks; follow-up with Podiatry. RICE therapy. Take Tylenol 650 mg every 4 hours and/or Ibuprofen 600 mg every 8 hours with food as needed for pain. Please take Levaquin and prednisone taper for your lower respiratory infection. Stop smoking and using illegal drugs. Referrals: Chelsea Emerson NP [Primary Care Provider] - As per Instructions Hermila Pedersen DPM [Doctor of Podiatric Medicine] - As per Instructions Prescriptions: levOFLOXACIN [levAQUIN (*)] 750 mg PO DAILY #5 tab predniSONE [predniSONE TAPER] 10 mg PO DAILY 6 Days ea
[2017-08-29] MEDS ORDERED: IPRATROPIUM/ALBUTEROL 3 ML DEYVIAL IH ONE (12:54)
[2017-08-29] MEDS ORDERED: BENZONATATE 100 MG CAP PO ONE (12:54)
[2017-08-29] MEDS ORDERED: IBUPROFEN SUSP 100 MG/5 ML UDCUP PO ONE (12:54)
[2017-08-29] MEDS ORDERED: IBUPROFEN 600 MG TAB PO ONE (12:54)
[2017-08-29] MEDS ORDERED: predniSONE 20 MG TAB PO ONE (12:54)
[2017-08-29] MEDS ORDERED: ALBUTEROL 60 PUFFS/8 GM MDI IH ONE (13:32)
[2017-08-29] MEDS ORDERED: ALBUTEROL INH PREPACK MDI TAKEHOME ONE (14:06)
== END 2017-08-29 15:00 | disposition home or self-care (01) ==
DX: J22 Unspecified acute lower respiratory infection (principal); J45.20 Mild intermittent asthma, uncomplicated; M77.31 Calcaneal spur, right foot; M84.374A Stress fracture, right foot, initial encounter for fracture; E11.9 Type 2 diabetes mellitus without complications; F17.200 Nicotine dependence, unspecified, uncomplicated
CPT/HCPCS: 71046; 73630; 99284; J7512

== ENCOUNTER 2017-09-06 10:03 | Emergency (ER) | payer OTHER, MEDICAID ==
[~2017-09-06 10:03] MED LIST: AZITHROMYCIN 250 MG TAB PO SCH; predniSONE 20 MG TAB PO SCH
--- NOTE | 2017-09-06 10:06 | EDPHY ---
HPI/HX/ROS/PE/MDM Narrative: CHIEF COMPLAINT: Difficulty breathing and walking. HISTORY OF PRESENT ILLNESS: This patient is a homeless 36 year old female with history of asthma and COPD arriving via EMS complaining of difficulty breathing and walking. This has been worsening over the past week and she has been using her albuterol inhaler as directed. She felt [facility], and has had a productive cough and throat pain. She denies fever. She is currently not staying at the jail and has been sleeping on the [address]. The patient states she has consumed $200 of meth in last two days. This is about /8-06/29oz. She states she has been using meth frequently over the last year to self-medicate for her paranoid schizophrenia, but she feels her symptoms have been worsening. She would like help getting off drugs. She states "I feel like [facility] would benefit me because I have been missing my medications". No chills, chest pain, palpitations, vomiting, diarrhea, urinary complaints, headache, lightheadedness. REVIEW OF SYSTEMS: Aside from elements discussed in the HPI, a comprehensive 10-point review of systems was reviewed and is negative. PAST MEDICAL HISTORY: Asthma, COPD, Hepatitis C, paranoid schizophrenia. SOCIAL HISTORY: Homeless. Daily methamphetamine and cigarette use. Lives in [place]. VITAL SIGNS: Reviewed by me GENERAL: Obese, well-developed, well-nourished, no respiratory distress. HEENT: Atraumatic. Eyes: No icterus, no injection. Mouth: moist mucous membranes. Mild erythema. No lesions. Neck: supple with no adenopathy. LUNGS: Coarse breath sounds with creaking and rhonchi throughout. CARDIAC: Distant, regular rate and rhythm, ABDOMEN: Soft, nontender, nondistended, bowel sounds normal. BACK: No CVA tenderness. EXTREMITIES: No trauma. No edema. Range of motion is normal throughout. NEURO: Alert and oriented, grossly nonfocal. SKIN: Warm and dry, no rash. PSYCHIATRIC: Normal mentation, no agitation. Portions of this note were transcribed by a vice president medical affairs. I personally performed a history, physical exam, medical decision making, and confirmed accuracy of information the transcribed note. ED Course: 10:04 Met EMS at bedside. 36 y/o female with history of asthma and COPD presents with one week history of worsening cough and shortness of breath. Exam reveals coarse breath sounds with creaking and rhonchi throughout. No pedal edema. Plan for chest x-ray, labs including CBC, chemistries. Plan to administer 125mg Solu-Medrol, DuoNeb, and albuterol nebulizer for symptom relief. Reviewed chest x-ray. Similar to prior x-ray 08/29/17. Radiology reading suggests worsening perihilar infiltrates. The patient previously had been prescribed Levaquin and Prednisone on August 29 but did not feel medications.. 11:06 Spoke with case management. Please see the case management note. They will assist in providing the patient her antibiotics and her prednisone. 11:45 Plan to discharge home in good condition with prescription for azithromycin and prednisone. She does have an albuterol inhaler still. I strongly encouraged her to discontinue methamphetamine use and take her psychiatric medications as prescribed. MDM: Differential diagnosis for the patient's shortness of breath was considered including but not limited to pulmonary infectious processes, COPD exacerbation, pulmonary emboli, pulmonary edema, congestive heart failure, and cardiac causes. - Data Points Imaging Results: CXR: Impression: New bilateral perihilar bronchial wall thickening and peribronchial infiltrates suggestive of early bronchopneumonia. Dictated By: Gume Cao MD Imaging: I viewed and interpreted images myself Laboratory Results: Laboratory Results 09/06/17 10:38 09/06/17 10:38 Medications Given: Discontinued Medications Albuterol (Proventil Neb) 3 ml IH EDNOW ONE Stop: 09/06/17 10:26 Last Admin: 09/06/17 11:19 Dose: 3 ml Albuterol/Ipratropium (Duoneb) 3 ml IH EDNOW ONE Stop: 09/06/17 10:26 Last Admin: 09/06/17 10:46 Dose: 3 ml Methylprednisolone Sodium Succinate (Solu-Medrol) 125 mg IVP EDNOW ONE Stop: 09/06/17 10:26 Last Admin: 09/06/17 11:19 Dose: 125 mg General Initial Vital Signs: Initial Vital Signs Temperature (C) 36.3 C 09/06/17 10:05 Heart Rate 90 09/06/17 10:05 Respiratory Rate 20 09/06/17 10:05 Blood Pressure 107/70 09/06/17 10:05 O2 Sat (%) 95 09/06/17 10:05 O2 Delivery Mode Room Air Allergies/Adverse Reactions: Penicillins Allergy (Unknown, Verified 09/06/17 10:08) Fish Containing Products [fish] Allergy (Verified 09/06/17 10:08) Home Medications: Medication Instructions Recorded Risperdal 08/31/16 Depakote 07/23/17 Albuterol [Proventil Inhaler HFA 1 - 2 puffs IH Q4H #1 mdi 09/06/17 (*)] Azithromycin [Zithromax] 250 - 500 mg PO DAILY #6 tab 09/06/17 predniSONE 20 mg PO DAILY 8 Days tablet 09/06/17 Departure - Departure Disposition: Home, Routine, Self-Care Clinical Impression: Cough, Bronchopneumonia URI (upper respiratory infection) Qualifiers: URI type: unspecified URI Qualified Code(s): J06.9 - Acute upper respiratory infection, unspecified Asthma exacerbation Qualifiers: Asthma severity: mild Asthma persistence: intermittent Qualified Code(s): J45.21 - Mild intermittent asthma with (acute) exacerbation Condition: Good Instructions: Prednisone (By mouth), Azithromycin (By mouth), Asthma (ED), Upper Respiratory Infection (ED) Additional Instructions: 1. Take azithromycin as prescribed. 2. Take prednisone as prescribed. 3. Use your albuterol inhaler as prescribed as needed. 4. Take your psychiatric medications as prescribed. Please do not take methamphetamines. 5. You may go to [facility] if you would like assistance in ceasing your drug use. 6. Return to the emergency department for fever, chest pain, difficulty breathing, or other worsening of condition. Referrals: [facility],. [Clinic] - As per Instructions Prescriptions: Albuterol [Proventil Inhaler HFA (*)] 1 - 2 puffs IH Q4H #1 mdi Azithromycin [Zithromax] 250 - 500 mg PO DAILY #6 tab predniSONE 20 mg PO DAILY 8 Days tablet Report Scribed for: Linda Bell Report Scribed by: Annette Glez Date of Report: 09/06/17 Time of Report: 10:12
[2017-09-06 10:11] VITALS: RESP 20; TEMP 97.3
[2017-09-06] MEDS ORDERED: methylPREDNISolone SOD SUCC 125 MG/2 ML VIAL IVP ONE (10:25)
[2017-09-06] MEDS ORDERED: ALBUTEROL 3 ML DEYVIAL IH ONE (10:25)
[2017-09-06] MEDS ORDERED: IPRATROPIUM/ALBUTEROL 3 ML DEYVIAL IH ONE (10:25)
[2017-09-06 10:45] LABS: PLATELET COUNT 201 10^3/uL (150-400)
[2017-09-06 11:42] VITALS: BP 118/76; PULSE 88; O2SAT 96
--- NOTE | 2017-09-06 13:04 | ASMTCMCOM ---
CM Note CM Note Notes: Please see ER report for details re patient's presentation to the ER. I have met with patient to discuss her frequent return to the ER and lack of follow up with her medications. Patient tells me that she did not fill the prescriptions for antibiotics and steroids (Prednisone) that she received on her last ER visit 08/29/17. She admits to her ongoing struggle with Methamphetamine and her choices to "use" over getting her medications filled. She states that she had an appointment this morning at [facility], but that she had trouble getting back to [place] from [place] this morning. When she did get back to [place], she went to her mother's home in [facility] and called 911 to get to the ER for SOB. Patient does mention [facility] and that she would like to be taken there for help with her medications. I have explained that [facility] may be an option for her to consider-detox or otherwise-and offered to give her the contact information for admissions. I explained that she would have to call herself and schedule an evaluation. Patient tells me that she is not interested in doing this and "usually gets an ambulance ride there". I confirmed that this was not an option from this facility. Patient tells me that she does spend some time with and talks to her mother. She does not stay there. She does stay at the [facility] at times, but has been down in [place] recently. I have offered to MAP patient's prescriptions today for Zithromycin and Prednisone and told patient that she will need to follow up with the clinic for her ongoing medication needs. I encouraged her to also follow up with [facility] regarding her psychiatric medications and "self medicating" behaviors/addiction issues. Patient decided to leave the ER instead of waiting 10-15 min for her MAPPED medications. I have called [facility] ([facility]) and updated Jessica on patient's recent and frequent vists to the ER since 07/24/17. Jessica confirms that patient did miss a scheduled appointment at the clinic this morning. She will also check in with [facility] regarding patient's continued Meth use and drug monitoring Date Signed: 09/06/2017 01:04 PM Electronically Signed By:Taylor Stone RN
== END 2017-09-06 12:02 | disposition home or self-care (01) ==
LOC: EDUNIT#
DX: J18.0 Bronchopneumonia, unspecified organism (principal); J06.9 Acute upper respiratory infection, unspecified; J45.21 Mild intermittent asthma with (acute) exacerbation; F17.210 Nicotine dependence, cigarettes, uncomplicated
CPT/HCPCS: 71046; 96374; 99284; J2930; J7613; J7512

== ENCOUNTER 2017-10-03 13:10 | Emergency (ER) | payer OTHER, MEDICAID ==
[2017-10-03 13:17] VITALS: BP 136/90
--- NOTE | 2017-10-03 15:11 | EDPHY ---
H & P Time Seen by Provider: 10/03/17 14:59 HPI/ROS: HPI Back pain. 36-year-old female on foot. Patient has a history of frequent visits to the emergency department for various complaints including back pain. She has a history of chronic back pain. She is chronically homeless. She presents to the emergency department today with complaint of back pain all over her lower and mid back. She reports this is the same pain she has had for years. She reports the pain is worse when she is walking. There is no history of fall or other traumatic event. She denies any fever. No history of cancer. No bowel or bladder incontinence. Denies any abdominal pain. No loss of sensation or weakness in her extremities. No other complaints. Nursing staff witnessed the patient walking from room outside to smoke a cigarette without difficulty. ROS: Constitutional: No fever, no chills. No weakness. Respiratory: No cough. No shortness of breath. Cardiac: No chest pain, no palpitations. Gastrointestinal: No abdominal pain, no vomiting, no diarrhea. Genitourinary: No hematuria. No dysuria or increased frequency with urination. Musculoskeletal: As above. No neck pain. Denies extremity pain. Skin: No rashes. No lacerations or abrasions. Neurological: No headache. No focal weakness or altered sensation. Past medical history: x4, was not tooth extraction, depression, SI, polysubstance abuse, asthma, diabetes, schizophrenia, chronic back pain, noncompliance with medications. Social history: Cigarette smoker. Chronically homeless, history of methamphetamine, cocaine, alcohol abuse. Physical Exam: General Appearance: Alert, disheveled in appearance, no distress. Obese habitus. This patient is responding to questions appropriately and in full sentences. This patient appears well-hydrated and well-nourished. Eyes: Pupils equal and round no pallor or injection. No lid edema, erythema or injection. Back exam: She does not have midline thoracic, lumbar, sacral tenderness on palpation. She does have tenderness on palpation of the bilateral sacroiliac joints. Left side greater than right side. No associated soft tissue erythema , warmth, edema or ecchymosis noted. She has a negative same side and cross- eyed straight leg raise test. She is neurologically intact in all myotomes in dermatomes of the bilateral lower extremities. Respiratory: There are no retractions, lungs are clear to auscultation with good air movement bilaterally. Neurological: Motor sensory function is grossly intact. Cranial nerves are normal. Gait is normal. Skin: Warm and dry, no rashes. Musculoskeletal: Neck is supple and nontender. Extremities are symmetrical. All joints range without pain or impingement. Psychiatric: No agitation. No depression. Database: EKG: Imaging: Procedures: Emergency department course: Vital signs reviewed and are unremarkable. Patient presents with chronic back pain. She has a history of substance abuse. She does not have any red flags on her exam. She was given 600 mg of ibuprofen. I discussed follow-up through her primary care physician at [facility]. She feels comfortable being discharged from the emergency department. As noted above she has been up and ambulatory to go outside to have a cigarette without any apparent difficulty. Follow-up was reviewed thoroughly with her. Return to emergency department precautions discussed. All of her questions were answered. She was discharged in good condition. Differential Diagnosis: The differential diagnosis on this patient includes but is not limited to lumbar sacral strain, sacroiliac strain. Epidural compression syndrome, acute radiculopathy, cauda equina syndrome, AAA, epidural abscess, malignancy, fracture unlikely. This represents a partial list of diagnoses considered. These considerations are based on history, physical exam, past history, reassessment and diagnostic testing. Smoking Status: Heavy smoker Constitutional: Initial Vital Signs Temperature (C) 37.1 C 10/03/17 13:14 Heart Rate 96 10/03/17 13:14 Respiratory Rate 18 10/03/17 13:14 Blood Pressure 136/90 H 10/03/17 13:14 O2 Sat (%) 94 10/03/17 13:14 O2 Delivery Mode Room Air Allergies/Adverse Reactions: Penicillins Allergy (Unknown, Verified 10/03/17 13:12) Fish Containing Products [fish] Allergy (Verified 10/03/17 13:12) Home Medications: Medication Instructions Recorded Depakote 09/28/17 Risperdal 09/28/17 Agrezza 10/03/17 Departure - Departure Disposition: Home, Routine, Self-Care Clinical Impression: Back pain Condition: Good Instructions: Back Pain (ED) Additional Instructions: Read and follow provided instructions. Follow-up with your primary care physician at [facility] in 1-2 days for re -evaluation. Take medication as prescribed. Ibuprofen dosin mg every 6 hours with meals for the next 3 days only. Take only as needed for pain. Return to the emergency department for worsening pain, bowel or bladder incontinence, loss of sensation or weakness in her lower extremities, fever or other serious concerns. Referrals: [facility],. [Primary Care Provider] - As per Instructions
[2017-10-03] MEDS ORDERED: IBUPROFEN 600 MG TAB PO ONE (15:13)
== END 2017-10-03 15:24 | disposition home or self-care (01) ==
DX: M54.9 Dorsalgia, unspecified (principal); F17.210 Nicotine dependence, cigarettes, uncomplicated; J45.909 Unspecified asthma, uncomplicated; E11.9 Type 2 diabetes mellitus without complications

== ENCOUNTER 2017-10-08 20:34 | Emergency (ER) | payer OTHER, MEDICAID ==
[2017-10-08 21:17] LABS: PLATELET COUNT 250 10^3/uL (150-400)
--- NOTE | 2017-10-08 21:27 | EDPHY ---
General - History Smoking Status: Heavy smoker Time Seen by Provider: 10/08/17 21:08 Narrative: CHIEF COMPLAINT: SI, thumb infection, "pelvic cut" HISTORY OF PRESENT ILLNESS: Patient complains of feeling suicidal, having infection of her thumb and index fingers, and pain and "cuts on my pelvis." She complains of infection that has been developing for "a while" but cannot specify. She has not been taking her prescribed medications for her bipolar and depression. She has been feeling very suicidal. She says that she wants to and "will kill myself," but she will not disclose her plan. She will not provide any modifying factors. She becomes very tearful and upset and will stop talking to me at that time. REVIEW OF SYSTEMS: Ten systems reviewed and are negative unless otherwise noted in the HPI PCP: [facility] SPECIALISTS: None PAST MEDICAL HISTORY: Depression anxiety, bipolar PAST SURGICAL HISTORY: No recent surgeries SOCIAL HISTORY: Currently homeless. Does admit to multiple illicit substances and tobacco and alcohol FAMILY HISTORY: Noncontributory EXAMINATION General Appearance: Alert, no distress. Unkempt Head: normocephalic, atraumatic Eyes: Pupils equal and round, no conjunctival pallor or injection ENT, Mouth: Mucous membranes dry. Poor dentition. Neck: Normal inspection, supple, non-tender Respiratory: Lungs are clear to auscultation. No retractions or distress Cardiovascular: Regular rate and rhythm. No murmur Gastrointestinal: Obese abdomen is soft and nontender. Back: non-tender, no bony abnormalities Neurological: A&O, nonfocal, normal gait Skin: Warm and dry. There is a candidal rash to bilateral inguinal canals and beneath her lower abdominal skin. No cellulitis. No abscess. No vesicular lesions. No crepitus, gangrene or foreign body. This exam was performed with female RN present at bedside. Extremities: Tenderness to the right thumb with superficial excoriations. I do not appreciate any signs of infection to the thumb or the adjacent fingers. I do not appreciate any signs of infection, gangrene or wrought to the feet. Psychiatric: Mood and affect normal DIFFERENTIAL DIAGNOSES: Including but not limited to depression, anxiety, candidal infection, malingering MDM: 9:10 p.m. Suicidal ideation with no plan. She also has a superficial infection of the right thumb without any septic joint or cellulitis. She complains of foot pain but there is no evidence of infection. She does have a significant inguinal tinea/candidal erythema. I do not appreciate any cellulitis. The patient is been placed on a detained or and we will treat her skin topically with Lotrimin and zinc oxide. I have also ordered wound care for the right thumb. She is in no acute distress. She will proceed with medical clearance for mental health evaluation. 11:00 p.m. Patient is now resting comfortably. She did request medication for anxiety which we did administer. 1:20 a.m. At this time I have discussed the case with Dr. Agosto. She will assume care the patient. The patient is on a detainer and pending psychiatric evaluation. SUPERVISION: Patient was independently examined, but I discussed the case with my secondary supervising physician Dr. Agosto (Laurent Hoffman) PHYSICIAN DOCUMENTATION: The patient was evaluated and managed by the Physician Bindery Operator. My co- signature indicates that I have reviewed this chart and I agree with the findings and plan of care as documented. I am the secondary supervising physician. 7:00 a.m.- The patient was stable throughout my shift. U tox was positive for amphetamines which will delay her mental health evaluation. She remains on a detainer for vague suicidal ideation without plan. Finger infection and skin infection were addressed. The case will be signed out to the oncoming provider Dr. Grossman. (Sydney Agosto) Medical Decision Making: Patient out to me by Dr. Agosto at 7:00 a.m. Saw the patient at 7:20 a.m.. She stable. Resting comfortably. She is awaiting plan dental health evaluation at 9:00 a.m. 10:15 a.m. Patient has been evaluated by mental health. They feel she is appropriate for outpatient treatment and does not need hospitalization. Mental health is arranging for the patient to be seen in 1 of the clinics today. ( Tomás Grossman) - Objective Vital Signs: Initial Vital Signs Heart Rate 102 H 10/08/17 20:39 Respiratory Rate 16 10/08/17 20:39 Blood Pressure 98/64 L 10/08/17 20:39 O2 Sat (%) 92 10/08/17 20:39 O2 Delivery Mode Room Air Allergies/Adverse Reactions: Penicillins Allergy (Unknown, Verified 10/03/17 13:12) Fish Containing Products [fish] Allergy (Verified 10/03/17 13:12) Home Medications: Medication Instructions Recorded Depakote 09/28/17 Risperdal 09/28/17 Agrezza 10/03/17 Laboratory Results: Laboratory Results 10/08/17 21:00 10/08/17 21:00 10/08/17 10/08/17 21:15 21:15 Urine Color YELLOW Urine Appearance CLEAR Urine pH 5.0 (5.0-7.5) Ur Specific [place] 1.012 (1.002-1.030) Urine Protein NEGATIVE (NEGATIVE) Urine Ketones NEGATIVE (NEGATIVE) Urine Blood NEGATIVE (NEGATIVE) Urine Nitrate NEGATIVE (NEGATIVE) Urine Bilirubin NEGATIVE (NEGATIVE) Urine Urobilinogen NEGATIVE EU EU (0.2-1.0) Ur Leukocyte Esterase NEGATIVE (NEGATIVE) Urine RBC 1-3 /hpf /hpf (0-3) Urine WBC 1-3 /hpf /hpf (0-3) Ur Epithelial Cells NONE SEEN /lpf /lpf (NONE-1+) Urine Bacteria 1+ /hpf H /hpf (NONE SEEN) Urine Mucus TRACE /lpf /lpf (NONE-1+) Urine Glucose NEGATIVE (NEGATIVE) Urine Opiates Screen NEGATIVE (NEGATIVE) Urine Barbiturates NEGATIVE (NEGATIVE) Ur Phencyclidine Scrn NEGATIVE (NEGATIVE) Ur Amphetamine Screen NON-NEGATIVE H (NEGATIVE) U Benzodiazepines Scrn NEGATIVE (NEGATIVE) Urine Cocaine Screen NEGATIVE (NEGATIVE) U Marijuana (THC) Screen NEGATIVE (NEGATIVE) Medications Given: Clotrimazole (Lotrimin 1%) 3 raffy TP EDNOW ONE Stop: 10/09/17 21:28 Last Admin: 10/08/17 22:14 Dose: 3 raffy Discontinued Medications Olanzapine (Zyprexa Zydis) 10 mg PO EDNOW ONE Stop: 10/08/17 22:02 Last Admin: 10/08/17 22:15 Dose: 10 mg Departure - Departure Disposition: Home, Routine, Self-Care Clinical Impression: Suicidal ideation, Severe major depression, Sherry infection of genital region Condition: Good Instructions: Depression (ED) Additional Instructions: Return for further thoughts of harming yourself or others. Keep your follow-up appointments as recommended by mental health. Referrals: Chelsea Emerson NP [Primary Care Provider] - As per Instructions
[2017-10-08] MEDS ORDERED: OLANZapine DISINTEGR 10 MG TAB ONE (22:00)
[2017-10-08] MEDS ORDERED: OLANZapine DISINTEGR 10 MG TAB PO ONE (22:01)
[2017-10-09 10:21] VITALS: BP 110/76
[2017-10-09 13:46] LABS: GC AMPLIFICATION GENPROBE NEGATIVE (NEGATIVE)
[2017-10-09] MEDS ORDERED: CLOTRIMAZOLE 1% 15 GM CRTUBE TP ONE (21:27)
== END 2017-10-09 11:17 | disposition home or self-care (01) ==
DX: R45.851 Suicidal ideations (principal); F32.2 Major depressive disorder, single episode, severe without psychotic features; B37.49 Other urogenital candidiasis; F17.200 Nicotine dependence, unspecified, uncomplicated
CPT/HCPCS: 80305; G0480

== ENCOUNTER 2017-10-20 16:40 | Emergency (ER) | payer OTHER, MEDICAID ==
[2017-10-20 16:50] VITALS: BP 162/149
--- NOTE | 2017-10-20 17:06 | EDPHY ---
H & P Stated Complaint: R thumb wound, R leg pain - Personal History LMP (Females 10-55): Unknown Current Tetanus/Diphtheria Vaccine: Yes Current Tetanus Diphtheria and Acellular Pertussis (TDAP): Yes Tetanus Vaccine Date: 2017 - Medical/Surgical History Hx Asthma: Yes Hx Chronic Respiratory Disease: Yes Hx Diabetes: No Hx Cardiac Disease: No Hx Renal Disease: No Hx Cirrhosis: No Hx Alcoholism: No Hx HIV/AIDS: No Hx Splenectomy or Spleen Trauma: No Other PMH: c section x4; wisdom teeth extraction; depression; SI, crack cocaine & meth abuse, psych, asthma, DM, schizophrenia, chronic pain, non-compliance w/ meds - Social History Smoking Status: Heavy smoker Time Seen by Provider: 10/20/17 16:54 HPI/ROS: CHIEF COMPLAINT: Multiple complaints HISTORY OF PRESENT ILLNESS: 37-year-old homeless female history of chronic back pain, bipolar disorder, depression, anxiety, walked to the ER with multiple complaints. Her primary complaint is requesting assistance "calming down". She has been using methamphetamine for the past 3 days and is feeling anxious. She denies suicidal or homicidal ideation. Denies hallucinations. Denies self injuries behavior. Her secondary complaint is evaluation of right thumb which she believes is infected. States that she has multiple subacute abrasions to this area is concerned that it may be infected. No direct trauma or fall. No limitations in range of motion. No fever or chills. No lymphangitic streaking. No flu- like symptoms. Her tertiary complaint is chronic back pain which feels same as her usual back pain for which she has been evaluated in the ER previously. Mild right buttock radicular pain with no footdrop, no incontinence no retention. PRIMARY CARE PROVIDER: REVIEW OF SYSTEMS: A ten point review of systems was performed and is negative with the exception of the items mentioned in the HPI PAST MEDICAL & SURGICAL HISTORY: Depression. Anxiety. Bipolar disorder. Chronic back pain. SOCIAL HISTORY:Polysubstance abuse including methamphetamine. Chronic tobacco abuse. PHYSICAL EXAM (Prior to examination, patient consented to physical exam, hands were washed and my usual and customary physical exam procedures followed) 1) GENERAL: Foul smelling, dirty, alert and oriented. Appears anxious, answering questions appropriately. 2) HEAD: Normocephalic, atraumatic 3) HEENT: Pupils equal, round, reactive to light bilaterally. Sclera anicteric. 4) NECK: Full range of motion, no meningeal signs. 5) LUNGS: Clear auscultation bilaterally, no wheezes, no rhonchi, no retractions. 6) HEART: Regular rate and rhythm, no murmur, no heave, no gallop. 7) ABDOMEN: No guarding, no rebound, no focal tenderness, negative McBurney's, negative Goldstein's, negative Rovsing's, negative peritoneal sign, 8) MUSCULOSKELETAL: Right upper extremity: Specific attention paid to the right thumb the patient is concerned about infection. She has multiple subacute abrasions to this area with no signs of infection, negative kanavel, no tenderness to palpation, no erythema, no foul smell, no drainage, no lymphangitic streaking, full pain-free range of motion. Bilateral feet are also examined as she is concerned that her feet may be infected. There are no signs of infection to her feet, no crepitus, no erythema, no induration. She is observed weight-bearing with full weight-bearing. Moving all extremities, no focal areas of tenderness, no obvious trauma. No peripheral edema or discoloration. 9) BACK: No CVA tenderness, no midline vertebral tenderness, no fluctuance, no step-off, no obvious trauma, no visual or palpable abnormality. Patella and Achilles reflexes are intact to bilateral strength 5/5 10) SKIN: No rash, no petechiae. 11) Psychiatric: Patient is oriented X 3, there is no agitation. DIFFERENTIAL DIAGNOSIS: In no particular order including but limited to spinal infectious etiology, cauda equina, acute on chronic back pain, infectious tenosynovitis of the thumb, cellulitis, acute methamphetamine abuse (Nighat,Gold Vaishnavi) Constitutional: Initial Vital Signs Temperature (C) 37 C 10/20/17 16:47 Heart Rate 100 10/20/17 16:47 Respiratory Rate 22 H 10/20/17 16:47 Blood Pressure 162/149 H 10/20/17 16:47 O2 Sat (%) 96 10/20/17 16:47 O2 Delivery Mode Room Air Allergies/Adverse Reactions: Penicillins Allergy (Unknown, Verified 10/20/17 16:46) Fish Containing Products [fish] Allergy (Verified 10/20/17 16:46) Home Medications: Medication Instructions Recorded Depakote 09/28/17 Risperdal 09/28/17 Agrezza 10/03/17 Medical Decision Making ED Course/Re-evaluation: 5:06 p.m.: I reviewed this patient's old medical records. She is tachycardic, hypertensive, she admits to being on a "3 day meth patton" which I think is more than likely the etiology of her tachycardia and her hypertension. Here in the ER she is requesting medication for her right thumb which does not appear infected, has no signs consistent with cellulitis, negative kanavel sign. I do not think that antibiotics are currently indicated.. Regarding her back pain, she has neurological E intact lower extremities. We discussed possibility of spinal infectious etiology is although she does noted history of chronic back pain. She is not interested in any laboratory diagnostic studies she has been informed that spinal infectious etiology is not ruled out. She is not interested in pursuing any further diagnostic studies she states that her primary interest is assistance calming down and therefore requests dose of Ativan and would like to know whether she can go to the emergency psychiatric walk-in clinic. I do not think she meets criteria for an M1 hold as she denies suicidal or homicidal ideation, shows no signs of psychosis. (Gold Disla) This patient was treated and examined by the physician elementary assistant principal. I agree with the treatment as documented. (Brittanie Garcia) - Data Points Medications Given: Discontinued Medications Lorazepam (Ativan) 1 mg PO EDNOW ONE Stop: 10/20/17 17:11 Last Admin: 10/20/17 17:23 Dose: 1 mg Departure - Departure Disposition: Home, Routine, Self-Care Clinical Impression: Methamphetamine abuse, Chronic back pain Condition: Good Instructions: Methamphetamine (By mouth), Methamphetamine Abuse (ED), Chronic Back Pain (ED) Additional Instructions: Stop using methamphetamine. Referrals: [facility],. [Clinic] - 1 day without fail
[2017-10-20] MEDS ORDERED: LORazepam 1 MG TAB PO ONE (17:10)
== END 2017-10-20 17:40 | disposition home or self-care (01) ==
DX: M54.9 Dorsalgia, unspecified (principal); G89.29 Other chronic pain; F15.10 Other stimulant abuse, uncomplicated; J45.909 Unspecified asthma, uncomplicated; F17.200 Nicotine dependence, unspecified, uncomplicated

== ENCOUNTER 2017-11-02 19:57 | Emergency (ER) | payer OTHER, MEDICAID ==
[2017-11-02] MEDS ORDERED: ALBUTEROL INH PREPACK MDI TAKEHOME ONE (20:34)
[2017-11-02] MEDS ORDERED: ALBUTEROL 3 ML DEYVIAL IH ONE (20:34)
--- NOTE | 2017-11-02 20:36 | EDPHY ---
H & P Stated Complaint: right hand tingling for a few days, neck pain, feet infection Time Seen by Provider: 11/02/17 20:34 HPI/ROS: HPI: This is a 37-year-old female who presents with Chief Complaint: Right wrist numbness, bilateral plantar pain, requesting albuterol refill Location: Multiple complaints Quality: Pain and numbness Duration: Several days Signs and Symptoms: No bleeding, no radiation, + numbness, no weakness, no tingling, no incontinence, no decreased range of motion, no swelling,+ pain, no fever Timing: Acute, worse with use Severity: Moderate Context: Patient is right-hand dominant, presents with complaints of right wrist dull aching discomfort that is worse at night. She reports that all 5 of her fingers have numbness and tingling when she sleeps. No injury/trauma/skin color change. She also reports that she has bilateral foot tenderness after walking long periods of time for the last 1-2 weeks. She reports that she has shoes from the [employer] that do not have inserts in them or much padding. Denies paresthesias/numbness/tingling in her feet. She also is requesting an albuterol inhaler for her Asthma. She admits to smoking daily. Not oxygen dependent. She has not tried anything for the symptoms are followed up with her primary care provider. Modifying Factors: None Comment: ROS: see HPI Constitutional: No fever, no chills, no weight loss Eyes: No blurred vision Respiratory: No shortness of breath, no cough Cardiovascular: No chest pain Gastrointestinal: No nausea, no vomiting no diarrhea Genitourinary: No dysuria Extremities: No myalgias Neurologic: No weakness, no numbness Skin: No rashes Hematologic: No bruising, no bleeding MEDICAL/SURGICAL/SOCIAL HISTORY: Medical/cervical history: c section x4; wisdom teeth extraction; depression; SI , crack cocaine & meth abuse, psych, asthma, DM, schizophrenia, chronic pain, non-compliance w/meds Social history: Disabled CONSTITUTIONAL: Morbidly obese adult white female, nontoxic in appearance, awake and alert, no obvious distress HEENT: Atraumatic and normocephalic. NECK: supple, no midline tenderness, flexion 45 degrees, extension 45 degrees, right and left lateral flexion 45 degrees. No meningismus. Cardiovascular: Normal S1/S2, regular rate, regular rhythm, without murmur rub or gallop. PULMONARY/CHEST: Symmetrical and nontender. no crepitus. Clear to auscultation bilaterally. Good air movement. No accessory muscle usage. ABDOMEN: Soft, nondistended, nontender, no ecchymosis. PELVIC: no pain with rocking; bilateral hips flexion 125 degrees, extension 30 degrees, with no pain internal rotation and no pain external rotation. BACK: No midline tenderness, no paraspinous spasm, deep tendon reflexes 2/2, no pain with straight leg raise, No foot drop. Achilles reflexes are equal bilaterally. Able to walk on heels and toes without difficulty. EXTREMITIES: 2/2 pulses, strength 5/5, right WRIST: Extension to 70, flexion to 80, radial deviation to 20 degree, ulnar deviation to 30, no scaphoid tenderness, no tenderness over ulnar styloid, no tenderness over radial styloid , no pain with Renzo test, moderate pain with Phalen test, moderate pain with Tinel test. Bilateral feet; reproducible tenderness to palpation on the entire sole. DIP/PIP/MCP flexion/extension intact with good light touch sensation. no deformities, no clubbing, no cyanosis or edema. NEUROLOGICAL: no focal neuro deficits. GCS 15. Light touch sensation intact. SKIN: Warm and dry, no erythema. no rash. Good capillary refill. Source: Patient, Old records Exam Limitations: No limitations - Personal History LMP (Females 10-55): Irregular Current Tetanus/Diphtheria Vaccine: Yes Current Tetanus Diphtheria and Acellular Pertussis (TDAP): Yes Tetanus Vaccine Date: 2017 - Medical/Surgical History Hx Asthma: Yes Hx Chronic Respiratory Disease: Yes Hx Diabetes: No Hx Cardiac Disease: No Hx Renal Disease: No Hx Cirrhosis: No Hx Alcoholism: No Hx HIV/AIDS: No Hx Splenectomy or Spleen Trauma: No Other PMH: c section x4; wisdom teeth extraction; depression; SI, crack cocaine & meth abuse, psych, asthma, DM, schizophrenia, chronic pain, non-compliance w/ meds - Social History Smoking Status: Heavy smoker Constitutional: Initial Vital Signs Temperature (C) 36.7 C 11/02/17 20:04 Heart Rate 91 11/02/17 20:04 Respiratory Rate 16 11/02/17 20:04 Blood Pressure 109/86 H 11/02/17 20:04 O2 Sat (%) 96 11/02/17 20:04 O2 Delivery Mode Room Air Allergies/Adverse Reactions: Penicillins Allergy (Unknown, Verified 10/20/17 16:46) Fish Containing Products [fish] Allergy (Verified 10/20/17 16:46) Home Medications: Medication Instructions Recorded Depakote 09/28/17 Risperdal 09/28/17 Agrezza 10/03/17 Medical Decision Making - Diagnostics Imaging Results: Imaging Impressions Wrist X-Ray 11/02/17 20:33 Impression: No acute osseous findings. Foot X-Ray 11/02/17 20:34 Impression: 1. No acute osseous findings. 2. Degenerative change as above. Foot X-Ray 11/02/17 20:34 Impression: 1. Decreased conspicuity of an equivocal stress fracture in the proximal 4th metatarsal. 2. Mild to moderate degenerative change at the posterior talocalcaneal articulation. 3. Additional findings, as above. ED Course/Re-evaluation: Vital signs reviewed upon arrival in stable. No signs of respiratory distress or hypoxia to indicate Asthma exacerbation or pneumonia. Given albuterol nebulizer as well as albuterol inhaler prepack to take home. No indication for chest x-ray. Wrist exam is consistent with carpal tunnel syndrome; right wrist Velcro splint applied. Bilateral foot exam is consistent with plantar fasciitis; advised to get inserts for her shoes; elevate her lower extremity; avoid long distance walking. Given ibuprofen 800 mg. Right wrist x-ray my read shows no fracture/dislocation/significant degenerative changes Bilateral foot x-ray my read shows no fracture/dislocation; + calcaneal bone spur No signs of neurovascular compromise/tenting of skin/compartment syndrome/ extremities and joints examined above and below area of concern and are neurovascularly intact. This patient was seen under the supervision of my secondary supervising physician. I evaluated care for this patient independently. Differential Diagnosis: Differential diagnosis includes but is not limited to radial fracture, ulnar fracture, nerve injury, tendon injury. - Data Points Medications Given: Discontinued Medications Albuterol (Proventil Neb) 3 ml IH EDNOW ONE Stop: 11/02/17 20:35 Last Admin: 11/02/17 20:52 Dose: 3 ml Albuterol Sulfate (Proventil Inh Prepack) 1 mdi TAKEHOME EDNOW ONE Stop: 11/02/17 20:35 Last Admin: 11/02/17 21:19 Dose: 1 mdi Ibuprofen (Motrin) 800 mg PO EDNOW ONE Stop: 11/02/17 21:00 Last Admin: 11/02/17 21:21 Dose: 800 mg Departure - Departure Disposition: Home, Routine, Self-Care Clinical Impression: Tobacco user, Asthma without acute exacerbation, Plantar fasciitis, bilateral, Mild carpal tunnel syndrome of right wrist, Calcaneal spur of both feet Condition: Good Instructions: Plantar Fasciitis (ED), Paresthesia (ED) Additional Instructions: Wear the right Velcro wrist splint until you are pain free. Activity: Limits use of right extremity until pain free. Take Tylenol 650 mg every 4 hours and/or Ibuprofen 600 mg every 8 hours with food as needed for pain. Apply ice to your wrist and bottoms of your feet for 30 minutes at a time; 2-3 times per day for the next 1-2 days. Please purchase gel inserts or shoe orthotics to help relieve pain from plantar fasciitis. The x-rays obtained in the emergency department today demonstrate no evidence of an obvious fracture. Foot x-rays show bone spurs. Follow up with Podiatry. Referrals: [facility],. [Clinic] - 5-7 days, if not improved Ezequiel Fishman DPM [Doctor of Podiatric Medicine] - Follow Up Only If Needed
[2017-11-02] MEDS ORDERED: IBUPROFEN 800 MG TAB PO ONE (20:59)
[2017-11-02] MEDS ORDERED: IBUPROFEN 200 MG TAB PO ONE (21:16)
[2017-11-02 21:30] VITALS: BP 103/62
== END 2017-11-02 21:31 | disposition home or self-care (01) ==
DX: J45.901 Unspecified asthma with (acute) exacerbation (principal); M72.2 Plantar fascial fibromatosis; G56.01 Carpal tunnel syndrome, right upper limb; M77.31 Calcaneal spur, right foot; M77.32 Calcaneal spur, left foot; E11.9 Type 2 diabetes mellitus without complications; F17.200 Nicotine dependence, unspecified, uncomplicated
CPT/HCPCS: 73100; 73620; 99284; J7613; L3908

== ENCOUNTER 2017-12-11 00:39 | Emergency (ER) | payer OTHER, MEDICAID ==
[2017-12-11 00:51] VITALS: BP 123/79
--- NOTE | 2017-12-11 02:09 | EDPHY ---
ED Progress Note Narrative: This is a 37-year-old female who is homeless who is brought in by ambulance from the bus stop where she was found smoking a cigarette complaining of low back and hip pain as well as foot pain. She did report using methamphetamine for the last 4 days. I obtained the patient's history from the paramedics, however I did not interview her primarily or examine her. I did review her vital signs which were normal. She was tired of waiting in the emergency department to be seen and left prior to my full assessment. She did say that she has a follow-up appointment this morning at 9:30 a.m. With her primary care doctor that she does not want to miss.
== END 2017-12-11 01:59 | disposition left against medical advice (07) ==
LOC: EDUNIT#
DX: Z53.21 Procedure and treatment not carried out due to patient leaving prior to being seen by health care provider (principal)

== ENCOUNTER 2018-02-25 08:21 | Emergency (ER) | payer OTHER, MEDICAID ==
[2018-02-25] MEDS ORDERED: ACETAMINOPHEN 325 MG TAB ONE ×2 (08:41→10:45)
--- NOTE | 2018-02-25 09:31 | EDPHY ---
General Time Seen by Provider: 02/25/18 09:21 Narrative: CHIEF COMPLAINT: Fall, knee pain, back pain, vaginal bleeding HISTORY OF PRESENT ILLNESS: Patient presents with complaints of knee and back pain status post fall. She reports a mechanical fall 2 nights ago in the dark. She landed on her left knee and then on her back. She has had some pain in both areas that has not improved. [id number] rest. Moderate to severe with weight-bearing. Back pain is lower thoracic upper lumbar. No numbness, tingling, weakness or incontinence. She also has some vaginal bleeding that she thinks maybe her menstrual period. She has no chest pain, headache, neck pain or abdominal pain. No dysuria. She does have another complaint of significance candidal type infection underneath the breast in the vagina. No vaginal discharge. No recent intercourse. No other associated complaints or modifying factors. REVIEW OF SYSTEMS: 10 systems were reviewed and negative with the exception of the elements mentioned in the history of present illness. PCP: [facility] SPECIALISTS: Dr. Weinstein PAST MEDICAL HISTORY: Bipolar disorder, schizophrenia, previous substance abuse, asthma, diabetes mellitus, chronic pain, COPD PAST SURGICAL HISTORY: [place] tooth extraction, C-sections SOCIAL HISTORY: History of polysubstance abuse and alcohol abuse. She states that she is sober from these for 4 weeks. Occasional tobacco use. Currently homeless FAMILY HISTORY: Noncontributory EXAMINATION: General Appearance: Alert, no distress. Unkempt. Head: normocephalic, atraumatic Eyes: Pupils equal and round, no conjunctival pallor or injection. EOM symmetric. ENT, Mouth: Mucous membranes markedly dry. Airway is patent. No trismus. Neck: Normal inspection, supple, non-tender Respiratory: Mild rhonchi. No wheezing, crackles or diminishment. Cardiovascular: Regular rate and rhythm. No murmur Gastrointestinal: Obese Abdomen is soft and nontender. No tympany rigidity. No guarding. : Female RN present there is evidence of vulvovaginal candidiasis without any discharge. Pelvic exam not indicated. Back: Mild tenderness of the thoracic and lumbar spine without step-off, crepitus or deformity. Neurological: A&O, nonfocal, antalgic but steady gait. Strength is symmetric in all 4 limbs with no pronator drift. Skin: Warm and dry. Candidal changes to bilateral under sided breast and vulvovaginal region. Extremities: Mild tenderness of the right knee without any deformity. Range of motion of the hips, knees and ankle symmetric. Weight-bearing without difficulty. Psychiatric: Mood and affect normal DIFFERENTIAL DIAGNOSES: Including but not limited to vaginal candidiasis, vulvovaginitis, UTI, vaginal bleeding, dysfunctional uterine bleeding, renal laceration, knee sprain, knee fracture, back strain, back sprain, vertebral fracture, tinea MDM: 9:30 a.m. Fall 2 days ago with right knee pain right back pain, with complaints of vaginal yeast infection and breast yeast infection. She has had some vaginal bleeding that she thinks is her period. She has no abdominal pain flank pain, headache, neck pain. She does have a significant candidal type infection under the breast and mild vaginal yeast infection. Her vital signs are within normal limits. There is no signs of SIRS or sepsis. She is awake and alert. She has no odor of alcohol about her. She is conversing appropriately in full sentences. Ordered laboratory studies, IV fluid as she does appear to be dry. I have also ordered topical antifungal medicine and will plan for oral medication as well. She is resting comfortably in no acute distress. X-rays are pending. 10:14 a.m. Laboratory studies are within normal limits, and have significantly improved in some parameters. X-rays are pending. 10:40 a.m. X-rays of the knee, thoracic spine, lumbar spine are all negative for any acute findings per Radiology. She has been ambulatory in the emergency department without difficulty. She has received IV fluid resuscitation. She has tolerated intake by mouth. There is no abdominal pain. I do feel she is stable for discharge home. We have treated her here with or Diflucan and topical clotrimazole. She will be discharged home with the clotrimazole to be applied twice daily for 7-10 days. We discussed 2nd dose of Diflucan on Monday for vulvovaginitis persist. We discussed follow up with primary care physician ED precautions. I have answered all her questions. Case management has visit with her and provided assistance for transport to the current soup kitchen. She is discharged home stable condition. SUPERVISION: This patient was independently evaluated without direct involvement of or examination by the attending physician. CONSULTATION: None - Diagnostics Imaging Results: Imaging Impressions Knee X-Ray 02/25/18 09:44 Impression: No evidence for acute osseous abnormality right knee. Lumbar Spine X-Ray 02/25/18 09:44 Impression: No evidence for acute osseous abnormality lumbar spine. Mild early degenerative disk disease, unchanged. Thoracic Spine X-Ray 02/25/18 09:44 Impression: Mild early degenerative change mid to lower thoracic spine. No evidence for acute fracture. - History Smoking Status: Heavy smoker - Objective Vital Signs: Initial Vital Signs Temperature (C) 98.2 F 02/25/18 08:25 Heart Rate 76 02/25/18 08:25 Respiratory Rate 16 02/25/18 08:25 Blood Pressure 118/67 02/25/18 08:25 O2 Sat (%) 96 02/25/18 08:25 O2 Delivery Mode Room Air Allergies/Adverse Reactions: Penicillins Allergy (Unknown, Verified 02/08/18 22:19) bee venom protein (honey bee) Allergy (Verified 02/08/18 22:19) Fish Containing Products [fish] Allergy (Verified 02/08/18 22:19) Home Medications: Medication Instructions Recorded Depakote 09/28/17 Risperdal 09/28/17 Abilify 01/13/18 Gabapentin 01/13/18 Fluconazole [Diflucan (*)] 150 mg PO ONCE #1 tab 02/25/18 Laboratory Results: Laboratory Results 02/25/18 08:20 02/25/18 08:20 02/25/18 02/25/18 02/25/18 08:20 08:20 08:20 WBC RBC Hgb Hct MCV MCH MCHC RDW Plt Count MPV Neut % (Auto) Lymph % (Auto) [place] % (Auto) Eos % (Auto) Baso % (Auto) Nucleat RBC Rel Count Absolute Neuts (auto) Absolute Lymphs (auto) Absolute Monos (auto) Absolute Eos (auto) Absolute Basos (auto) Absolute Nucleated RBC Immature Gran % Immature Gran # PT INR APTT Sodium 143 mEq/L mEq/L (135-145) Potassium 3.9 mEq/L mEq/L (3.3-5.0) Chloride 108 mEq/L mEq/L (97-110) Carbon Dioxide 28 mEq/l mEq/l (22-31) Anion Gap 7 mEq/L L mEq/L (8-16) BUN 7 mg/dL mg/dL (7-23) Creatinine 0.6 mg/dL mg/dL (0.6-1.0) Estimated GFR > 60 Glucose 74 mg/dL mg/dL (70-100) Calcium 9.4 mg/dL mg/dL (8.5-10.4) Total Bilirubin 0.5 mg/dL mg/dL (0.1-1.4) Conjugated Bilirubin 0.2 mg/dL mg/dL (0.0-0.5) Unconjugated Bilirubin 0.3 mg/dL mg/dL (0.0-1.1) AST 37 IU/L IU/L (14-46) ALT 45 IU/L IU/L (9-52) Alkaline Phosphatase 66 IU/L IU/L (38-126) Total Protein 7.0 g/dL g/dL (6.3-8.2) Albumin 4.0 g/dL g/dL (3.5-5.0) Beta HCG, Qual NEGATIVE 02/25/18 02/25/18 08:20 08:20 WBC 8.21 10^3/uL 10^3/uL (3.80-9.50) RBC 4.66 10^6/uL 10^6/uL (4.18-5.33) Hgb 14.6 g/dL g/dL (12.6-16.3) Hct 44.1 % % (38.0-47.0) MCV 94.6 fL fL (81.5-99.8) MCH 31.3 pg pg (27.9-34.1) MCHC 33.1 g/dL g/dL (32.4-36.7) RDW 12.5 % % (11.5-15.2) Plt Count 242 10^3/uL 10^3/uL (150-400) MPV 10.9 fL fL (8.7-11.7) Neut % (Auto) 60.0 % % (39.3-74.2) Lymph % (Auto) 24.8 % % (15.0-45.0) [place] % (Auto) 10.1 % % (4.5-13.0) Eos % (Auto) 3.8 % % (0.6-7.6) Baso % (Auto) 0.9 % % (0.3-1.7) Nucleat RBC Rel Count 0.0 % % (0.0-0.2) Absolute Neuts (auto) 4.93 10^3/uL 10^3/uL (1.70-6.50) Absolute Lymphs (auto) 2.04 10^3/uL 10^3/uL (1.00-3.00) Absolute Monos (auto) 0.83 10^3/uL H 10^3/uL (0.30-0.80) Absolute Eos (auto) 0.31 10^3/uL 10^3/uL (0.03-0.40) Absolute Basos (auto) 0.07 10^3/uL 10^3/uL (0.02-0.10) Absolute Nucleated RBC 0.00 10^3/uL 10^3/uL (0-0.01) Immature Gran % 0.4 % % (0.0-1.1) Immature Gran # 0.03 10^3/uL 10^3/uL (0.00-0.10) PT 14.0 SEC SEC (12.0-15.0) INR 1.06 (0.83-1.16) APTT 32.1 SEC SEC (23.0-38.0) Sodium Potassium Chloride Carbon Dioxide Anion Gap BUN Creatinine Estimated GFR Glucose Calcium Total Bilirubin Conjugated Bilirubin Unconjugated Bilirubin AST ALT Alkaline Phosphatase Total Protein Albumin Beta HCG, Qual Medications Given: Clotrimazole (Lotrimin 1%) 1 raffy TP BID DIPESH Stop: 03/27/18 09:44 Last Admin: 02/25/18 10:50 Dose: 1 btl Discontinued Medications Sodium Chloride (Ns) 1,000 mls @ 0 mls/hr IV EDNOW ONE; Wide Open PRN Reason: Protocol Stop: 02/25/18 09:45 Last Admin: 02/25/18 09:48 Dose: 1,000 mls Departure - Departure Disposition: Home, Routine, Self-Care Clinical Impression: Vulvovaginal candidiasis, Candidiasis of breast Knee contusion Qualifiers: Encounter type: initial encounter Laterality: right Qualified Code(s): S80.01XA - Contusion of right knee, initial encounter Low back strain Qualifiers: Encounter type: initial encounter Qualified Code(s): S39.012A - Strain of muscle, fascia and tendon of lower back, initial encounter Condition: Good Instructions: Yeast Infection (ED), Low Back Strain (ED), Skin Yeast Infection (ED), Lower Back Exercises (ED), Thoracic Back Strain (ED) Additional Instructions: 1. Ibuprofen [id number] as needed 2. Topical clotrimazole applied to the affected area under the breasts only twice daily. You may use this on your thigs as well, but DO NOT apply to your labia 3. Oral Diflucan, 1 pill on MondayFebruary 28 Four. Follow up with primary care physician. Referrals: Shyam Silva MD [Non Staff Provider (MD)] - As per Instructions [facility],. [Clinic] - As per Instructions Prescriptions: Fluconazole [Diflucan (*)] 150 mg PO ONCE #1 tab
[2018-02-25 09:35] LABS: PLATELET COUNT 242 10^3/uL (150-400)
[2018-02-25] MEDS ORDERED: NS 1,000 ML IV ONE (09:44)
[2018-02-25] MEDS ORDERED: CLOTRIMAZOLE 1% 15 GM CRTUBE TP SCH (09:45)
[2018-02-25 09:47] LABS: INR 1.06 (0.83-1.16)
[2018-02-25] MEDS ORDERED: FLUCONAZOLE 150 MG TAB PO ONE (09:57)
[2018-02-25] MEDS ORDERED: IBUPROFEN 600 MG TAB PO ONE ×2 (10:45)
[2018-02-25 11:08] VITALS: BP 118/85
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
== END 2018-02-25 11:08 | disposition home or self-care (01) ==
LOC: EDUNIT#
DX: S80.01XA Contusion of right knee, initial encounter (principal); S39.012A Strain of muscle, fascia and tendon of lower back, initial encounter; B37.3 Candidiasis of vulva and vagina; B37.89 Other sites of candidiasis; E86.9 Volume depletion, unspecified; W19.XXXA Unspecified fall, initial encounter

== ENCOUNTER 2018-03-24 20:25 | Emergency (ER) | payer OTHER, MEDICAID ==
[2018-03-24 20:37] VITALS: BP 114/78
--- NOTE | 2018-03-24 20:51 | EDPHY ---
H & P Time Seen by Provider: 03/24/18 20:44 HPI/ROS: CHIEF COMPLAINT: Concern for HISTORY OF PRESENT ILLNESS: 37-year-old female here with concern for possible . She reports her last. Was at the end of last month. She has not missed any periods. She has been "messing around with some diya" and has been feeling more hungry than usual so think she is . She has not checked home test. She denies any abdominal pain, vomiting, diarrhea, vaginal bleeding. ROS As detailed in HPI Smoking Status: Heavy smoker Physical Exam: General: Alert and oriented. Nontoxic appearing. No acute distress HEENT: Pupils PERRLA. No oral lesions. Cardiopulmonary: Regular rate and rhythm. No lower extremity edema Skin: [place] warm and dry. No lesions. Muscle skeletal: Moving all 4 extremities. Equal strength in upper extremities and lower extremities. Ambulatory. Constitutional: Initial Vital Signs Temperature (C) 36.9 C 03/24/18 20:33 Heart Rate 96 03/24/18 20:33 Respiratory Rate 18 03/24/18 20:33 Blood Pressure 114/78 03/24/18 20:33 O2 Sat (%) 97 03/24/18 20:33 O2 Delivery Mode Room Air Allergies/Adverse Reactions: Penicillins Allergy (Unknown, Verified 03/24/18 20:30) bee venom protein (honey bee) Allergy (Verified 03/24/18 20:30) blueberry Allergy (Verified 03/24/18 20:31) Fish Containing Products [fish] Allergy (Verified 03/24/18 20:30) Home Medications: Medication Instructions Recorded Depakote 09/28/17 Abilify 01/13/18 Gabapentin 01/13/18 Metformin HCl 03/24/18 Medical Decision Making ED Course/Re-evaluation: Patient requesting test. Patient left for any labs are urinalysis was performed. Departure - Departure Disposition: Left Without Being Seen Referrals: Chelsea Emerson NP [Primary Care Provider] - As per Instructions
== END 2018-03-24 21:04 | disposition left against medical advice (07) ==
DX: Z53.21 Procedure and treatment not carried out due to patient leaving prior to being seen by health care provider (principal)

== ENCOUNTER 2018-09-27 21:26 | Emergency (ER) | payer OTHER, MEDICAID ==
[2018-09-27 22:03] LABS: PLATELET COUNT 215 10^3/uL (150-400)
[2018-09-27] MEDS ORDERED: IOPAMIDOL (ISOVUE 370) 100 ML BTL IV ONE ×2 (22:32→22:47)
--- NOTE | 2018-09-27 23:24 | EDPHY ---
H & P Stated Complaint: right rib pain Time Seen by Provider: 09/27/18 21:37 HPI/ROS: Chief complaint: Right-sided rib pain History of present illness: This is a 37-year-old female who presents to the emergency department with EMS for right-sided rib pain. She reports the onset of symptoms 4 days ago. She describes a sharp localized pain. Worse with deep breathing. She denies precipitating factors. She denies alleviating factors. She denies other associated signs or symptoms including no other chest pain, no chest pressure, no cough, no trouble breathing, no dizziness or lightheadedness , no pain or swelling in the legs, no trauma. Review of systems: A 10 point review of systems was obtained and other than described above was negative. - Personal History LMP (Females 10-55): Over 28 Days Ago Current Tetanus/Diphtheria Vaccine: Yes Current Tetanus Diphtheria and Acellular Pertussis (TDAP): Yes Tetanus Vaccine Date: 2017 - Medical/Surgical History Hx Asthma: Yes Hx Chronic Respiratory Disease: Yes Hx Diabetes: Yes Hx Cardiac Disease: No Hx Renal Disease: No Hx Cirrhosis: No Hx Alcoholism: No Hx HIV/AIDS: No Hx Splenectomy or Spleen Trauma: No Other PMH: c section x4; wisdom teeth extraction; depression; SI, crack cocaine & meth abuse, psych, asthma, DM, schizophrenia, chronic pain, non-compliance w/ meds,COPD, - Social History Smoking Status: Heavy smoker - Physical Exam Exam: General Appearance: Alert, nontoxic. Eyes: Pupils equal and round no pallor or injection. ENT, Mouth: Mucous membranes moist. Respiratory: There are no retractions, lungs are clear to auscultation. Cardiovascular: Regular rate and rhythm. Gastrointestinal: Abdomen is soft and non tender, no masses, bowel sounds normal. Neurological: Alert and oriented x4. Strength and sensation intact and symmetrical. Skin: Warm and dry, no rashes. Musculoskeletal: Neck is supple non tender. Extremities are symmetrical, full range of motion. Psychiatric: Patient is oriented X 3, there is no agitation. Constitutional: Initial Vital Signs Temperature (C) 36.6 C 09/27/18 21:30 Heart Rate 92 09/27/18 21:30 Respiratory Rate 18 09/27/18 21:30 Blood Pressure 114/73 09/27/18 21:30 O2 Sat (%) 95 09/27/18 21:30 O2 Delivery Mode Room Air Allergies/Adverse Reactions: Penicillins Allergy (Unknown, Verified 09/27/18 21:31) bee venom protein (honey bee) Allergy (Verified 09/27/18 21:31) blueberry Allergy (Verified 09/27/18 21:31) Fish Containing Products [fish] Allergy (Verified 09/27/18 21:31) Home Medications: Medication Instructions Recorded Haloperidol Decanoate IM 09/27/18 (Long-Acting) (*) Medical Decision Making - Diagnostics Imaging Results: Imaging Impressions Chest/Thorax CTA 09/27/18 22:27 Impression: 1. No evidence of thrombopulmonary embolic disease. 2. Clear lungs. No acute cardiopulmonary process. 3. No acute fracture. Findings discussed with Emergency Department physician employee relations assistant, MIGUEL Leon at 09/27/2018 23:24. Imaging: Discussed imaging studies w/ environmental health safety engineer Radiologist ED Course/Re-evaluation: Patient was discussed with my secondary supervising physician Dr. Herber Hope. Patient presented for sharp right-sided chest wall pain. Her workup was unremarkable. My suspicion for serious pathology is low. She is discharged home. Symptomatic care with ibuprofen is discussed. Patient became extremely agitated when she was told to use ibuprofen for pain control, she started screaming and had to be escorted out by security. She was informed to follow up with a primary care doctor. Return precautions were given. Differential Diagnosis: Included but not limited to musculoskeletal pain, pneumothorax, pulmonary infections, pulmonary embolism, cardiac dysrhythmia, doubtful ACS - Data Points Laboratory Results: Laboratory Results 09/27/18 21:53 09/27/18 21:53 09/27/18 09/27/18 09/27/18 21:53 21:53 21:53 WBC RBC Hgb Hct MCV MCH MCHC RDW Plt Count MPV Neut % (Auto) Lymph % (Auto) [place] % (Auto) Eos % (Auto) Baso % (Auto) Nucleat RBC Rel Count Absolute Neuts (auto) Absolute Lymphs (auto) Absolute Monos (auto) Absolute Eos (auto) Absolute Basos (auto) Absolute Nucleated RBC Immature Gran % Immature Gran # D-Dimer 0.78 ug/mLFEU H ug/mLFEU (0.00-0.50) Sodium 139 mEq/L mEq/L (135-145) Potassium 4.1 mEq/L mEq/L (3.5-5.2) Chloride 108 mEq/L mEq/L (97-110) Carbon Dioxide 26 mEq/l mEq/l (22-31) Anion Gap 5 mEq/L L mEq/L (6-14) BUN 11 mg/dL mg/dL (7-23) Creatinine 0.6 mg/dL mg/dL (0.6-1.0) Estimated GFR > 60 Glucose 94 mg/dL mg/dL (70-100) Calcium 9.3 mg/dL mg/dL (8.5-10.4) Beta HCG, Qual NEGATIVE 09/27/18 21:53 WBC 10.38 10^3/uL H 10^3/uL (3.80-9.50) RBC 4.42 10^6/uL 10^6/uL (4.18-5.33) Hgb 13.7 g/dL g/dL (12.6-16.3) Hct 41.6 % % (38.0-47.0) MCV 94.1 fL fL (81.5-99.8) MCH 31.0 pg pg (27.9-34.1) MCHC 32.9 g/dL g/dL (32.4-36.7) RDW 12.8 % % (11.5-15.2) Plt Count 215 10^3/uL 10^3/uL (150-400) MPV 9.8 fL fL (8.7-11.7) Neut % (Auto) 59.0 % % (39.3-74.2) Lymph % (Auto) 27.1 % % (15.0-45.0) [place] % (Auto) 10.1 % % (4.5-13.0) Eos % (Auto) 2.6 % % (0.6-7.6) Baso % (Auto) 0.8 % % (0.3-1.7) Nucleat RBC Rel Count 0.0 % % (0.0-0.2) Absolute Neuts (auto) 6.13 10^3/uL 10^3/uL (1.70-6.50) Absolute Lymphs (auto) 2.81 10^3/uL 10^3/uL (1.00-3.00) Absolute Monos (auto) 1.05 10^3/uL H 10^3/uL (0.30-0.80) Absolute Eos (auto) 0.27 10^3/uL 10^3/uL (0.03-0.40) Absolute Basos (auto) 0.08 10^3/uL 10^3/uL (0.02-0.10) Absolute Nucleated RBC 0.00 10^3/uL 10^3/uL (0-0.01) Immature Gran % 0.4 % % (0.0-1.1) Immature Gran # 0.04 10^3/uL 10^3/uL (0.00-0.10) D-Dimer Sodium Potassium Chloride Carbon Dioxide Anion Gap BUN Creatinine Estimated GFR Glucose Calcium Beta HCG, Qual Departure - Departure Disposition: Home, Routine, Self-Care Clinical Impression: Chest pain Qualifiers: Chest pain type: unspecified Qualified Code(s): R07.9 - Chest pain, unspecified Condition: Good Instructions: Chest Pain (ED) Additional Instructions: Follow-up with her primary care doctor for continued evaluation and care Use ibuprofen 600 mg 3 times a day for the next 2-3 days for pain control If symptoms worsen or new symptoms develop return to the emergency room for recheck Referrals: [facility] [Other] - As per Instructions
[2018-09-28 00:04] VITALS: BP 106/79
--- NOTE | 2018-09-30 15:16 | CPEKG ---
Test Reason : OPEN Blood Pressure : / mmHG Vent. Rate : 091 BPM Atrial Rate : 091 BPM P-R Int : 157 ms QRS Dur : 087 ms QT Int : 363 ms P-R-T Axes : 040 067 029 degrees QTc Int : 447 ms Sinus rhythm Confirmed by Herber Hope ([id number] on 09/30/2018 3:16:10 PM Referred By: Herber Hope Confirmed By:Herber Hope
== END 2018-09-28 00:03 | disposition home or self-care (01) ==
LOC: EDUNIT#
DX: R07.9 Chest pain, unspecified (principal); J45.909 Unspecified asthma, uncomplicated; E11.9 Type 2 diabetes mellitus without complications; F25.9 Schizoaffective disorder, unspecified; F17.200 Nicotine dependence, unspecified, uncomplicated; Z88.0 Allergy status to penicillin
CPT/HCPCS: 71275; 93005; 99285; Q9967

== ENCOUNTER 2018-10-09 17:55 | Emergency (ER) | payer OTHER, MEDICAID ==
[2018-10-09] MEDS ORDERED: NS 1,000 ML IV ONE (17:57)
[2018-10-09] MEDS ORDERED: PROMETHAZINE HCL 25 MG/ML INJ IVP ONE (17:58)
--- NOTE | 2018-10-09 18:01 | EDPHY ---
H & P Time Seen by Provider: 10/09/18 17:59 HPI/ROS: HPI CHIEF COMPLAINT: Nausea vomiting diarrhea. HISTORY OF PRESENT ILLNESS: Patient is a 38-year-old female, she has a history of schizophrenia, depression, anxiety, polysubstance abuse, including methamphetamine recently used methamphetamine earlier today. She presents emergency room with nausea vomiting diarrhea. Denies any chest pain or shortness of breath or abdominal pain. States he vomited once. She states she vomited after she smoked a joint of marijuana. Past Medical History: Significant medical history for schizophrenia, diabetes, COPD, polysubstance abuse, depression, anxiety Past Surgical History: x4 Social History: Denies daily use of alcohol. However methamphetamine use and and tobacco Family History: Noncontributory ROS REVIEW OF SYSTEMS: 10 Systems were reviewed and negative with the exception of the elements mentioned in the history of present illness. Exam Constitutional nontoxic, triage nursing summary reviewed, vital signs reviewed , awake/alert. Eyes normal conjunctivae and sclera, EOMI, PERRLA. HENT normal inspection, atraumatic, moist mucus membranes, no epistaxis, neck supple/ no meningismus, no raccoon eyes. Respiratory clear to auscultation bilaterally, normal breath sounds, no respiratory distress, no wheezing. Cardiovascular rate normal, regular rhythm, no murmur, no edema, distal pulses normal. Gastrointestinal soft, non-tender, no rebound, no guarding, normal bowel sounds, no distension, no pulsatile mass. Genitourinary no CVA tenderness. Musculoskeletal no midline vertebral tenderness, full range of motion, no calf swelling, no tenderness of extremities, no meningismus, good pulses, neurovascularly intact. Skin pink, warm, & dry, no rash, skin atraumatic. Neurologic awake, alert and oriented x 3, AAOx3, moves all 4 extremities equally, motor intact, sensory intact, CN II-XII intact, normal cerebellar, normal vision, normal speech. Psychiatric normal mood/affect. Heme/Lymph/Immune no lymphadenopathy. Differential Diagnosis: Differential diagnosis includes but is not limited to and in no particular order: Bowel obstruction, appendicitis, gallbladder disease, diverticulitis, colitis, enteritis, perforated viscus, gastritis, GERD , esophagitis, urinary tract infection, pyelonephritis, kidney stones Medical Decision Making: Plan for this patient IV establishment IV fluid bolus , IV Phenergan for nausea, basic labs, electrolytes, drug screen, re-evaluate. Re-evaluation: 1922 patient re-evaluated is resting comfortably in no acute distress. In fact he was sleeping at 1 point in the emergency room. On re-examination she states she feels well. Her abdomen is soft nontender. She is asking for something to eat and drink. She has not had any nausea vomiting or diarrhea here. She denies any chest pain or shortness of breath. Patient's labs are unremarkable Patient p.o. Challenge well, has no complaints. No abdominal pain on exam, no vomiting, was able to tolerate p.o.. Her abdomen is soft I do not feel that she needs any imaging at this time. We discussed return precautions he understands to return emergency room develops worsening abdominal pain, fever, vomiting, not doing well Source: Patient, EMS - Personal History Tetanus Vaccine Date: 2017 - Medical/Surgical History Hx Asthma: Yes Hx Chronic Respiratory Disease: Yes Hx Diabetes: Yes Hx Cardiac Disease: No Hx Renal Disease: No Hx Cirrhosis: No Hx Alcoholism: No Hx HIV/AIDS: No Hx Splenectomy or Spleen Trauma: No Other PMH: c section x4; wisdom teeth extraction; depression; SI, crack cocaine & meth abuse, psych, asthma, DM, schizophrenia, chronic pain, non-compliance w/ meds,COPD, - Social History Smoking Status: Heavy smoker Constitutional: Initial Vital Signs Temperature (C) 36.8 C 10/09/18 18:03 Heart Rate 88 10/09/18 18:03 Respiratory Rate 16 10/09/18 18:03 Blood Pressure 114/95 H 10/09/18 18:03 O2 Sat (%) 95 10/09/18 18:03 O2 Delivery Mode Room Air Allergies/Adverse Reactions: Penicillins Allergy (Unknown, Verified 09/27/18 21:31) bee venom protein (honey bee) Allergy (Verified 09/27/18 21:31) blueberry Allergy (Verified 09/27/18 21:31) Fish Containing Products [fish] Allergy (Verified 09/27/18 21:31) Home Medications: Medication Instructions Recorded Haloperidol Decanoate IM 09/27/18 (Long-Acting) (*) Flexeril 10 MG (*) 10/09/18 Gabapentin 10/09/18 Lexapro 10/09/18 Medical Decision Making - Data Points Laboratory Results: Laboratory Results 10/09/18 18:00 10/09/18 18:00 10/09/18 10/09/18 10/09/18 18:00 18:00 18:00 WBC 7.51 10^3/uL 10^3/uL (3.80-9.50) RBC 4.61 10^6/uL 10^6/uL (4.18-5.33) Hgb 14.4 g/dL g/dL (12.6-16.3) Hct 44.0 % % (38.0-47.0) MCV 95.4 fL fL (81.5-99.8) MCH 31.2 pg pg (27.9-34.1) MCHC 32.7 g/dL g/dL (32.4-36.7) RDW 13.0 % % (11.5-15.2) Plt Count 250 10^3/uL 10^3/uL (150-400) MPV 9.5 fL fL (8.7-11.7) Neut % (Auto) 49.3 % % (39.3-74.2) Lymph % (Auto) 39.9 % % (15.0-45.0) [place] % (Auto) 7.2 % % (4.5-13.0) Eos % (Auto) 2.5 % % (0.6-7.6) Baso % (Auto) 0.8 % % (0.3-1.7) Nucleat RBC Rel Count 0.0 % % (0.0-0.2) Absolute Neuts (auto) 3.70 10^3/uL 10^3/uL (1.70-6.50) Absolute Lymphs (auto) 3.00 10^3/uL 10^3/uL (1.00-3.00) Absolute Monos (auto) 0.54 10^3/uL 10^3/uL (0.30-0.80) Absolute Eos (auto) 0.19 10^3/uL 10^3/uL (0.03-0.40) Absolute Basos (auto) 0.06 10^3/uL 10^3/uL (0.02-0.10) Absolute Nucleated RBC 0.00 10^3/uL 10^3/uL (0-0.01) Immature Gran % 0.3 % % (0.0-1.1) Immature Gran # 0.02 10^3/uL 10^3/uL (0.00-0.10) Sodium 142 mEq/L mEq/L (135-145) Potassium 4.0 mEq/L mEq/L (3.5-5.2) Chloride 109 mEq/L mEq/L (97-110) Carbon Dioxide 24 mEq/l mEq/l (22-31) Anion Gap 9 mEq/L mEq/L (6-14) BUN 14 mg/dL mg/dL (7-23) Creatinine 0.7 mg/dL mg/dL (0.6-1.0) Estimated GFR > 60 Glucose 98 mg/dL mg/dL (70-100) Calcium 9.4 mg/dL mg/dL (8.5-10.4) Total Bilirubin 0.2 mg/dL mg/dL (0.1-1.4) Conjugated Bilirubin 0.2 mg/dL mg/dL (0.0-0.5) Unconjugated Bilirubin 0.0 mg/dL mg/dL (0.0-1.1) AST 20 IU/L IU/L (14-46) ALT 36 IU/L IU/L (9-52) Alkaline Phosphatase 69 IU/L IU/L (38-126) Total Protein 7.2 g/dL g/dL (6.3-8.2) Albumin 4.3 g/dL g/dL (3.5-5.0) Lipase 54 IU/L IU/L (23-300) Beta HCG, Qual NEGATIVE Medications Given: Discontinued Medications Sodium Chloride (Ns) 1,000 mls @ 0 mls/hr IV EDNOW ONE; Wide Open PRN Reason: Protocol Stop: 10/09/18 17:58 Last Admin: 10/09/18 18:14 Dose: 1,000 mls Promethazine HCl (Phenergan) 6.25 mg IVP ONCE ONE Stop: 10/09/18 17:59 Last Admin: 10/09/18 18:14 Dose: 6.25 mg Departure - Departure Disposition: Home, Routine, Self-Care Clinical Impression: Vomiting Condition: Good Instructions: Acute Nausea and Vomiting (ED) Additional Instructions: 1. [place] diet no spicy fatty greasy foods. Referrals: NONE *PRIMARY CARE P,. [Primary Care Provider] - As per Instructions [facility],. [Clinic] - As per Instructions
[2018-10-09 18:15] LABS: PLATELET COUNT 250 10^3/uL (150-400)
[2018-10-09 20:11] VITALS: BP 114/80
== END 2018-10-09 20:09 | disposition home or self-care (01) ==
LOC: EDUNIT#
DX: R11.10 Vomiting, unspecified (principal); E86.9 Volume depletion, unspecified; E11.9 Type 2 diabetes mellitus without complications; F17.200 Nicotine dependence, unspecified, uncomplicated
CPT/HCPCS: 96361; 96374; 99284; J2550

== ENCOUNTER 2018-11-23 00:28 | Inpatient (IN) | payer OTHER ==
[2018-11-23] MEDS ORDERED: OLANZapine DISINTEGR 10 MG TAB ONE ×2 (00:41→07:27)
[2018-11-23] MEDS ORDERED: OLANZapine DISINTEGR 10 MG TAB PO ONE (00:44)
[2018-11-23 00:58] LABS: PLATELET COUNT 234 10^3/uL (150-400)
--- NOTE | 2018-11-23 06:09 | EDPHY ---
H & P Stated Complaint: m1 hold Source: Patient, EMS Exam Limitations: Clinical condition - Personal History Current Tetanus Diphtheria and Acellular Pertussis (TDAP): Yes Tetanus Vaccine Date: 2017 - Medical/Surgical History Hx Asthma: Yes Hx Chronic Respiratory Disease: Yes Hx Diabetes: Yes Hx Cardiac Disease: No Hx Renal Disease: No Hx Cirrhosis: No Hx Alcoholism: No Hx HIV/AIDS: No Hx Splenectomy or Spleen Trauma: No Other PMH: c section x4; wisdom teeth extraction; depression; SI, crack cocaine & meth abuse, asthma, DM, schizophrenia, chronic pain, non-compliance w/meds, COPD, - Social History Smoking Status: Heavy smoker Time Seen by Provider: 11/23/18 00:33 HPI/ROS: HPI The patient presents with psychosis, brought in by ambulance on an M1 hold for this. The patient was at the [facility] acting erratically, yelling that she was incompetent. She was placed on an M1 hold and brought here. Here she complains that her feet are hurting her and that she is feeling out of control. She denies any SI currently.. REVIEW OF SYSTEMS 10 systems were reviewed and negative with the exception of the elements mentioned in the history of present illness. PMHx: Schizoaffective disorder Soc Hx: Polysubstance abuse, homelessness PHYSICAL General Appearance: Alert, somewhat agitated Eyes: Pupils equal and round no pallor or injection ENT, Mouth: Mucous membranes moist Respiratory: There are no retractions, lungs are clear to auscultation Cardiovascular: Regular rate and rhythm Gastrointestinal: Abdomen is soft and non-tender, no masses, bowel sounds normal Neurological: A&O, moves all extremities Skin: Warm and dry, no rashes Musculoskeletal: Neck is supple non tender Extremities: symmetrical, full range of motion Psychiatric: Patient is oriented X 3, somewhat agitated stating that she feels out of control (Riguzzi,[place]) Constitutional: Initial Vital Signs Temperature (C) 36.5 C 11/23/18 00:35 Heart Rate 110 H 11/23/18 00:35 Respiratory Rate 18 11/23/18 00:35 Blood Pressure 123/87 H 11/23/18 00:35 O2 Sat (%) 99 11/23/18 00:35 O2 Delivery Mode Room Air Allergies/Adverse Reactions: Penicillins Allergy (Unknown, Verified 11/23/18 00:39) bee venom protein (honey bee) Allergy (Verified 11/23/18 00:39) blueberry Allergy (Verified 11/23/18 00:39) Fish Containing Products [fish] Allergy (Verified 11/23/18 00:39) Home Medications: Medication Instructions Recorded Haloperidol Decanoate IM 09/27/18 (Long-Acting) (*) Flexeril 10 MG (*) 10/09/18 Gabapentin 10/09/18 Lexapro 10/09/18 Haldol 11/23/18 INVEGA 11/23/18 Metformin HCl 11/23/18 Medical Decision Making ED Course/Re-evaluation: I took over care of this patient at 7:00 a.m.. This patient is on an M1 hold for psychotic behavior. She has been evaluated here in the past for similar behavior. She has been medically cleared. She is waiting behavioral health evaluation. This should occur sometime this morning. 7:10 a.m., the patient has been seen and evaluated by Behavioral Health. The patient is to be admitted for inpatient psychiatric management. Destination for admission is pending at this time. 7:30 a.m., the patient is escalating in agitation and psychotic behavior. She last received 10 mg of Zyprexa yesterday evening. She will be given another 10 mg of oral Zyprexa. 12:30 p.m., the patient is to be admitted to [facility]. I have filled out the appropriate transfer paperwork. Dr. Soares is the admitting physician/psychiatrist. The patient's remaining emergency department course under my care has been uneventful. The patient was transferred in stable condition. (Yair Cruz) Differential Diagnosis: 38-year-old homeless female with history of schizoaffective disorder, polysubstance abuse, presents with psychosis with mild agitation [facility] Here, she is redirectable. She does have ongoing agitation. She agreed to take is a dose of Zyprexa p.o. And this allowed her to rest. Differential diagnosis includes polysubstance abuse, acute stress response, decompensated schizophrenia with psychosis. Here, labs were checked and were unremarkable. Her M1 hold was maintained. She will be seen by the mental health chicken hatchery helper. At 7:00 a.m., case signed out to the oncoming provider Dr. Cruz. Patient is awaiting mental health evaluation. (Sydney Agosto) - Data Points Laboratory Results: Laboratory Results 11/23/18 00:50 11/23/18 00:50 11/23/18 06:05 Urine Opiates Screen NEGATIVE (NEGATIVE) Urine Barbiturates NEGATIVE (NEGATIVE) Ur Phencyclidine Scrn NEGATIVE (NEGATIVE) Ur Amphetamine Screen NEGATIVE (NEGATIVE) U Benzodiazepines Scrn NEGATIVE (NEGATIVE) Urine Cocaine Screen NEGATIVE (NEGATIVE) U Marijuana (THC) Screen NEGATIVE (NEGATIVE) Medications Given: Nicotine Polacrilex (Nicorette) 2 mg B PRN PRN PRN Reason: Nicotine Withdrawal Stop: 05/22/19 11:55 Last Admin: 11/23/18 12:12 Dose: 2 mg Discontinued Medications Olanzapine (Zyprexa Zydis) 10 mg PO EDNOW ONE Stop: 11/23/18 00:45 Last Admin: 11/23/18 00:52 Dose: 10 mg Olanzapine (Olanzapine) 10 mg PO ONCE ONE Stop: 11/23/18 07:32 Last Admin: 11/23/18 07:33 Dose: 10 mg Departure - Departure Disposition: [facility] IP Clinical Impression: Acute psychosis Referrals: Patient,NotPresent [Primary Care Provider] - As per Instructions
[2018-11-23] MEDS ORDERED: OLANZapine 5 MG TAB PO ONE (07:31)
--- NOTE | 2018-11-23 09:13 | ASMTTCLDSP ---
TLC Discharge Disposition Disposition: Answers: Admit Disposition Notes: Notes: In consultation with [facility] ED physician, Yair Cruz MD and on-call psychiatrist, Jc Capone MD, both concurred that pt appears to meet 27-65 criteria requiring psychiatric hospitalization as pt appears to be at risk of harm to self/others/gravely disabled due to a mental illness condition. Pt was read the Patient Rights and Responsibilities Statement on (date/time), original placed on chart, and was given photocopy of Rights. Pt (signed/declined to sign) the Patient Rights. Pt was given the 3N prohibited belongings list while in the ED. Was patient given the Answers: Yes Inpatient Behavioral Health Prohibited Belongings List while in the ED? For inpatient Dr Jc Capone admission, the following psychiatrist agreed to accept patient for admission to [facility] Type of Hold: Answers: M1/72-hour Hold Hold initiated by: Answers: Other Notes: [facility] Date Signed: 11/23/2018 09:12 AM Electronically Signed By:Shima Page
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
[2018-11-23] MEDS: NICOTINE POLACRILEX 2 MG GUM B PRN ×3 (12:12→18:54)
--- NOTE | 2018-11-23 16:02 | PDHOSCONS ---
History and Physical - Chief Complaint medical mgmt, psychosis - History of Present Illness HPI 38 YO homeless female with hx of schizophrenia presents with psychosis, brought in by ambulance on an M1 hold for this. The patient was at the [facility] acting erratically, yelling that she was incompetent. She was placed on an M1 hold and brought here. She denies any SI currently. She seems confused. She is able to follow some commands but cannot answer questions intelligently. 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 she denies being sob. She does have a cough she denies fever PMH: c section x4; wisdom teeth extraction; depression; SI, crack cocaine & meth abuse, asthma, DM, schizophrenia, chronic pain, non-compliance w/meds,COPD, Schizoaffective disorder Soc Hx: Polysubstance abuse, homelessness History Information - Allergies/Home Medication List Allergies/Adverse Reactions: Penicillins Allergy (Unknown, Verified 11/23/18 00:39) bee venom protein (honey bee) Allergy (Verified 11/23/18 00:39) blueberry Allergy (Verified 11/23/18 00:39) Fish Containing Products [fish] Allergy (Verified 11/23/18 00:39) Home Medications: Haloperidol Dec (Long-Acting) [Haloperidol Decanoate IM (Long-Acting) (*)] 150 mg IM Q30D 09/27/18 [Last Taken Unknown] Gabapentin [Neurontin 300 MG (*)] 600 mg PO TID 10/09/18 [Last Taken Unknown] OXcarbazepine [Trileptal 300mg (*)] 900 mg PO HS 11/23/18 [Last Taken Unknown] Valbenazine Tosylate [Ingrezza] 80 mg PO HS 11/23/18 [Last Taken Unknown] metFORMIN HCL [Glucophage 1000 mg] 1,000 mg PO BIDMEAL 11/23/18 [Last Taken Unknown] traZODone [traZODONE 100MG (*)] 100 mg PO HS 11/23/18 [Last Taken Unknown] I have personally reviewed and updated: medical history, social history - Social History Smoking Status: Heavy smoker Review of Systems Review of Systems: ROS: 10pt was reviewed & negative except for what was stated in HPI & below Physical Exam Physical Exam: Temp Pulse Resp BP Pulse Ox 36.8 C 100 16 116/71 95 11/23/18 15:22 11/23/18 15:22 11/23/18 15:22 11/23/18 15:22 11/23/18 15:22 Constitutional: no apparent distress, chronically ill appearing Eyes: PERRL, EOMI Ears, Nose, Mouth, Throat: moist mucous membranes, hearing normal Cardiovascular: regular rate and rhythym, no murmur, rub, or gallop Respiratory: no respiratory distress, reduced air movement, expiratory wheeze Gastrointestinal: normoactive bowel sounds, soft, non-tender abdomen Skin: warm Neurologic: No AAOx3 Psychiatric: anxious, agitated, No interacting appropriately Lymph, Heme, Immunologic: No petechiae Lab Data & Imaging Review 11/23/18 00:50 11/23/18 00:50 WBC 10.22 10^3/uL (3.80-9.50) H 11/23/18 00:50 RBC 4.55 10^6/uL (4.18-5.33) 11/23/18 00:50 Hgb 13.9 g/dL (12.6-16.3) 11/23/18 00:50 Hct 41.3 % (38.0-47.0) 11/23/18 00:50 MCV 90.8 fL (81.5-99.8) 11/23/18 00:50 MCH 30.5 pg (27.9-34.1) 11/23/18 00:50 MCHC 33.7 g/dL (32.4-36.7) 11/23/18 00:50 RDW 13.3 % (11.5-15.2) 11/23/18 00:50 Plt Count 234 10^3/uL (150-400) 11/23/18 00:50 MPV 9.5 fL (8.7-11.7) 11/23/18 00:50 Neut % (Auto) 54.0 % (39.3-74.2) 11/23/18 00:50 Lymph % (Auto) 32.3 % (15.0-45.0) 11/23/18 00:50 [place] % (Auto) 10.3 % (4.5-13.0) 11/23/18 00:50 Eos % (Auto) 2.3 % (0.6-7.6) 11/23/18 00:50 Baso % (Auto) 0.8 % (0.3-1.7) 11/23/18 00:50 Nucleat RBC Rel Count 0.0 % (0.0-0.2) 11/23/18 00:50 Absolute Neuts (auto) 5.52 10^3/uL (1.70-6.50) 11/23/18 00:50 Absolute Lymphs (auto) 3.30 10^3/uL (1.00-3.00) H 11/23/18 00:50 Absolute Monos (auto) 1.05 10^3/uL (0.30-0.80) H 11/23/18 00:50 Absolute Eos (auto) 0.24 10^3/uL (0.03-0.40) 11/23/18 00:50 Absolute Basos (auto) 0.08 10^3/uL (0.02-0.10) 11/23/18 00:50 Absolute Nucleated RBC 0.00 10^3/uL (0-0.01) 11/23/18 00:50 Immature Gran % 0.3 % (0.0-1.1) 11/23/18 00:50 Immature Gran # 0.03 10^3/uL (0.00-0.10) 11/23/18 00:50 Sodium 142 mEq/L (135-145) 11/23/18 00:50 Potassium 4.0 mEq/L (3.5-5.2) 11/23/18 00:50 Chloride 107 mEq/L (97-110) 11/23/18 00:50 Carbon Dioxide 24 mEq/l (22-31) 11/23/18 00:50 Anion Gap 11 mEq/L (6-14) 11/23/18 00:50 BUN 16 mg/dL (7-23) 11/23/18 00:50 Creatinine 0.7 mg/dL (0.6-1.0) 11/23/18 00:50 Estimated GFR > 60 11/23/18 00:50 Glucose 100 mg/dL (70-100) 11/23/18 00:50 Calcium 9.7 mg/dL (8.5-10.4) 11/23/18 00:50 Total Bilirubin 0.5 mg/dL (0.1-1.4) 11/23/18 00:50 AST 20 IU/L (14-46) 11/23/18 00:50 ALT 25 IU/L (9-52) 11/23/18 00:50 Alkaline Phosphatase 61 IU/L (38-126) 11/23/18 00:50 Total Protein 7.5 g/dL (6.3-8.2) 11/23/18 00:50 Albumin 4.6 g/dL (3.5-5.0) 11/23/18 00:50 Urine Opiates Screen NEGATIVE (NEGATIVE) 11/23/18 06:05 Urine Barbiturates NEGATIVE (NEGATIVE) 11/23/18 06:05 Ur Phencyclidine Scrn NEGATIVE (NEGATIVE) 11/23/18 06:05 Ur Amphetamine Screen NEGATIVE (NEGATIVE) 11/23/18 06:05 U Benzodiazepines Scrn NEGATIVE (NEGATIVE) 11/23/18 06:05 Urine Cocaine Screen NEGATIVE (NEGATIVE) 11/23/18 06:05 U Marijuana (THC) Screen NEGATIVE (NEGATIVE) 11/23/18 06:05 Ethyl Alcohol < 10 mg/dL (0-10) 11/23/18 00:50 Assessment & Plan Assessment: Acute psychosis (Acute) Schizoaffective disorder Asthma, not in exacerbation DM, Glucose not elevated on labs, cont Metformin Leukocytosis, slight, afebrile Polysubstance abuse, negative urine tox screen Plan: psych care per behavioral team Albuterol inhaler Check A1C Check TSH Thank you for this consult. please call if questions
[2018-11-23] MEDS ORDERED: ALBUTEROL 3 ML DEYVIAL IH PRN (16:05)
[2018-11-23] MEDS: OLANZapine DISINTEGR 10 MG TAB PO PRN (16:18)
[2018-11-23] MEDS: metFORMIN HCL 500 MG TAB PO SCH (17:35)
[2018-11-23] MEDS: LORazepam 1 MG TAB PO PRN (18:54)
[2018-11-23] MEDS: ACETAMINOPHEN 325 MG TAB PO PRN (18:54)
[2018-11-24] MEDS: ACETAMINOPHEN 325 MG TAB PO PRN ×3 (05:14→17:53)
[2018-11-24] MEDS: OLANZapine DISINTEGR 10 MG TAB PO PRN ×3 (05:14→18:51)
[2018-11-24] MEDS: LORazepam 1 MG TAB PO PRN ×3 (05:14→18:51)
[2018-11-24] MEDS: NICOTINE POLACRILEX 2 MG GUM B PRN ×9 (05:15→19:33)
[2018-11-24] MEDS: metFORMIN HCL 500 MG TAB PO SCH ×2 (08:15→17:47)
--- NOTE | 2018-11-24 09:38 | PDMN ---
Medical Necessity Medical necessity: [facility] [id number] Schizophrenia Spectrum Disorders, Adult: Inpatient Care, 6 days: 38 yo w/ schizoaffective d/o, bipolar type, PTDS and amphetamine type substance d/o, severe, on M1 hold for delusional thought content. Admit IP status BEH unit.
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
[2018-11-24] MEDS: GABAPENTIN 300 MG CAP PO SCH ×2 (16:00→20:20)
[2018-11-24] MEDS: MAGNESIUM HYDROXIDE 30 ML UDCUP PO PRN (18:33)
--- NOTE | 2018-11-24 18:41 | HOSPPROG ---
Hospitalist Progress Note Assessment/Plan: Call from behavioral health provider regarding UA results, showing 2+ blood, 2+ leukocyte esterase, 25-50 wbcs, 4+ bacteria, 3+ epithelial cells. Likely contaminated sample. Per report, patient denying urinary symptoms suggestive of infection (although not very reliable given her psychiatric issues). Review of chart shows no fevers or significant leukocytosis. Would hold off on antibiotics. Agree with sending urine culture. If >100k CFU of urinary pathogen on culture, please page internal medicine and can discuss antibiotics. Objective: Vital Signs Temp Pulse Resp BP Pulse Ox 36.7 C 96 14 109/66 95 11/24/18 05:21 11/24/18 05:21 11/24/18 05:21 11/24/18 05:21 11/24/18 05:21 ICD10 Worksheet Patient Problems: Problems Problem Status Onset Acute psychosis Acute Cough Acute Fall Acute Methamphetamine abuse Acute Schizoaffective disorder Acute Schizophrenia Acute URI (upper respiratory infection) Acute
--- NOTE | 2018-11-24 22:33 | SOAPPROG ---
SOAP Progress Note Assessment/Plan: Assessment: 38yo with long hx SZA d/o admitted on M-1 for grave disability after noted incr affective lability, yelling in [facility] and incr paranoid. seen and assessed briefly but pt not cooperative with full interview due to agitation. Affect labile, ranging from calm to using curse words and foul language, demanding to get an collections attorney. Indicated she was recently in [facility] and now here, wants to go back to [facility] where her mother is. perseverated on wanting Gabapentin 600mg TID for pain, that this is her outpt med. but also requests flexaril and other pain meds not on her med consolidated list. denied other medical problems except chronic pain. -started on her gabapentin 600mg tid -zyprexa 10mg prn and ativan 1-2mg prn dosing avail -collateral from outpt [facility] "Dr. Silva is my doctor!" - admission dictation to follow Objective: Vital Signs Temp Pulse Resp BP Pulse Ox 36.7 C 96 14 109/66 95 11/24/18 05:21 11/24/18 05:21 11/24/18 05:21 11/24/18 05:21 11/24/18 05:21 ICD10 Worksheet Patient Problems: Problems Problem Status Onset Acute psychosis Acute Cough Acute Fall Acute Methamphetamine abuse Acute Schizoaffective disorder Acute Schizophrenia Acute URI (upper respiratory infection) Acute
[2018-11-25] MEDS: NICOTINE POLACRILEX 2 MG GUM B PRN ×7 (05:09→18:37)
[2018-11-25] MEDS: OLANZapine DISINTEGR 10 MG TAB PO PRN ×2 (05:15→09:29)
[2018-11-25] MEDS: LORazepam 1 MG TAB PO PRN ×3 (05:15→16:18)
[2018-11-25] MEDS: MAG HYDROX/AL HYDROX/SIMETH 30 ML UDCUP PO PRN ×2 (06:19→12:52)
[2018-11-25] MEDS: GABAPENTIN 300 MG CAP PO SCH ×3 (08:37→21:01)
[2018-11-25] MEDS: metFORMIN HCL 500 MG TAB PO SCH ×2 (08:37→17:12)
[2018-11-25] MEDS: ACETAMINOPHEN 325 MG TAB PO PRN (08:59)
[2018-11-25] MEDS: MAGNESIUM HYDROXIDE 30 ML UDCUP PO PRN (10:26)
[2018-11-25] MEDS ORDERED: traZODone 100 MG TAB PO PRN (11:40)
[2018-11-25] MEDS ORDERED: BENZTROPINE MESYLATE 1 MG TAB PO PRN (11:40)
[2018-11-25] MEDS ORDERED: ALBUTEROL 60 PUFFS/8 GM MDI IH PRN (11:41)
--- NOTE | 2018-11-25 14:45 | ASMTCMCOM ---
CM Note CM Note Notes: The patient escalated; yellingdemanding to be to "discharged," "medicated," accusing [facility] of mistreatment, requesting the patient hospital sales representative and threatening to "grieve" staff. This gag writer met with the psychiatrist and the patient; we discussed mood stability, medication regimen, collaboration with [facility], and coping strategies. The patient expressed interest in coloring and requested soda or candy. The patient reported concern and fear regarding upcoming court proceedings, probation, and returning to shelter. Date Signed: 11/25/2018 02:45 PM Electronically Signed By:Fernanda Suazo. LINA,Yvette,R-DMT
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
[2018-11-25] MEDS: OXcarbazepine 300 MG TAB PO SCH (21:00)
[2018-11-26] MEDS: NICOTINE POLACRILEX 2 MG GUM B PRN ×9 (03:07→18:35)
[2018-11-26] MEDS: MAGNESIUM HYDROXIDE 30 ML UDCUP PO PRN (06:18)
[2018-11-26] MEDS: ACETAMINOPHEN 325 MG TAB PO PRN ×3 (06:44→18:35)
[2018-11-26] MEDS: OLANZapine DISINTEGR 10 MG TAB PO PRN ×3 (07:12→16:18)
[2018-11-26] MEDS: GABAPENTIN 300 MG CAP PO SCH ×3 (07:46→20:15)
[2018-11-26] MEDS: NICOTINE 21 MG/24 HR PATCH TD SCH (07:47)
[2018-11-26] MEDS: metFORMIN HCL 500 MG TAB PO SCH ×2 (07:47→17:21)
--- NOTE | 2018-11-26 13:33 | ASMTCMCOM ---
CM Note CM Note Notes: Per collateral from [facility] staff, the patient is in the [facility] program, is not currently involved with [facility], and has been in and out of retirement for the past three weeks. She received her last dose of Haldol, 150mg, dec, IM on 10/31/18 in [facility]. The patient has confirmed follow up appointments with [facility]; 11/30 @ 11:30 and 12/06 @ 11:00. Gabe ([facility]) would like to be contacted when Saida is planning to discharge. She can be reached at [phone]. Her fax # is [phone]; clinical referral sent. Date Signed: 11/26/2018 01:32 PM Electronically Signed By:Fernanda Suazo. LINA,Yvette,R-DMT
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
[2018-11-26] MEDS: LORazepam 1 MG TAB PO PRN ×2 (16:18→16:30)
[2018-11-26] MEDS: OXcarbazepine 300 MG TAB PO SCH (20:15)
[2018-11-27] MEDS: NICOTINE POLACRILEX 2 MG GUM B PRN ×5 (03:48→10:42)
[2018-11-27] MEDS: OLANZapine DISINTEGR 10 MG TAB PO PRN ×2 (04:39→09:01)
[2018-11-27] MEDS: LORazepam 1 MG TAB PO PRN ×2 (04:39→09:01)
[2018-11-27 05:17] VITALS: BP 114/73
[2018-11-27] MEDS: ACETAMINOPHEN 325 MG TAB PO PRN (05:33)
[2018-11-27] MEDS: metFORMIN HCL 500 MG TAB PO SCH (07:52)
[2018-11-27] MEDS: GABAPENTIN 300 MG CAP PO SCH (07:53)
[2018-11-27] MEDS: NICOTINE 21 MG/24 HR PATCH TD SCH (07:53)
[2018-11-27] MEDS ORDERED: HALOPERIDOL DEC (LONG-ACTING) 50 MG/ML VIAL IM ONE (10:35)
--- NOTE | 2018-11-27 19:27 | BDS ---
[f rep st] BEHAVIORAL HEALTH DISCHARGE SUMMARY REASON FOR ADMISSION: Patient is a 38-year-old female with a history of schizoaffective di sorder, PTSD, and past amphetamine use disorder. She presented to the hospital after having a behavi oral outburst at the local homeless custodial. She stated she was afraid that her ex- was going to kill her and was screaming loudly. She remained agitated in the emergency department, required e mergency medications and restraint, and was admitted to the behavioral health services inpatient unit for stabilization. A full description of events preceding admission can be found in Dr. Claudia hubbard' admission note dated 11/24/2018. ADMITTING DIAGNOSES: Schizoaffective disorder, bipolar type, chronic, with acute exacerbation; postt raumatic stress disorder, chronic, with possible acute exacerbation; nicotine use disorder, unspecifi ed; amphetamine use disorder, in reported remission; alcohol use disorder, in reported remission; his tory of diabetes; obesity; chronic obstructive pulmonary disease; chronic pain. Admission physical examinationperformed by Dr. Dang revealed no acute physical findings. ADMISSION LABORATORY: CBC showed a white count up to 10.22, otherwise normal. Serum chemistries wer e normal. Liver function was normal. Lipid profile showed cholesterol 166 and triglycerides at 85. TSH was normal at 2.63. Urinalysis showed 25-50 white cells and 4+ bacteria, LE and nitrite negativ e. Urine drug screen showed no substances, and alcohol is less than detectable. HOSPITAL COURSE: The patient was admitted to behavioral health services inpatient unit on an M1 hold . She was agitated, screaming, and very regressed. It was difficult for staff to work with her as s he was difficult to verbally redirect and was very child-like. There was some speculation that she m ay have either a marginal intellect or an autistic disorder. She did eventually calm and was more co operative. When I saw her first on 11/26/2018, she was cooperative and interactive and was quite ple asant. She stated that she just got anxious and thought that her ex- was going to kill her fo r no particular reason. She states she does not believe that now. The patient was continued on her previous outpatient medications which she was compliant with through out her stay. These included orals such as Neurontin and Trileptal and trazodone and her Haldol Deca noate that was due at the time of her discharge. She was given 150 mg of the Haldol Decanoate on the day of discharge. The patient was cooperative and pleasant throughout most of her admission. She w as very appropriate in her discharge meeting with the treatment team, stating that she needed to get to [facility] by 3 o'clock when a particular staff member would hand out the distribution s from her disability. She stated that if she did not do this, she would have to wait until , and that would leave her without any money tomorrow. She stated that she would return to the [facility] where she very much enjoyed staying and where she would get to see her mother. CONDITION AT DISCHARGE: Stable. Her affect was euthymic, stable, and appropriate. She was interact ing appropriately with others. There was no evidence of gross psychosis or agitation. She was verba lizing no thoughts of suicide, homicide, or violence. DISCHARGE MEDICATIONS: Include haloperidol Decanoate 150 mg every 4 weeks, administered 11/27/2018. Metformin 1000 mg twice b.i.d., Ingrezza 80 mg at bedtime, albuterol inhaler p.r.n., Proventil inhale r p.r.n., Cogentin a mg b.i.d., gabapentin 600 mg t.i.d., oxcarbazepine 900 mg at bedtime, and trazod one 100 mg at bedtime as needed for sleep. 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 Attitude at discharge was positive. The patient was happy to leave the hospital and resume her outpa tient treatment. The patient was a full code throughout her stay. There were no pending lab or studies at the time of discharge. The patient was placed on a short-term certification at the expiration of her M1 hold. Short-term ce rtification was discontinued at time of her discharge. The patient was administered alcohol, nicotine, cannabis, and metabolic screenings and declined furth er interventions after the brief interventional therapies. /[id number]/MODL
== END 2018-11-27 12:40 | disposition home or self-care (01) | DRG 885 ==
LOC: EDUNIT# → BBEH 14:30
PROVIDERS: ADMIT Psychiatry & Neurology Psychiatry; ATTEND Psychiatry & Neurology Psychiatry
DX: F25.0 Schizoaffective disorder, bipolar type (principal); F43.10 Post-traumatic stress disorder, unspecified; E11.9 Type 2 diabetes mellitus without complications; J45.909 Unspecified asthma, uncomplicated; B19.20 Unspecified viral hepatitis C without hepatic coma; F17.210 Nicotine dependence, cigarettes, uncomplicated; Z59.0 Homelessness
CPT/HCPCS: 80305; G0480; J1631